=== PATIENT | male | born 1960 | race Caucasian/White ===

== ENCOUNTER → 2017-06-01 | Outpatient (CLI) | payer OTHER ==
--- NOTE | 2017-06-01 11:44 | XR ---
EXAMINATION TYPE: XR hand complete LT DATE OF EXAM: 06/01/2017 COMPARISON: NONE HISTORY: Pain TECHNIQUE: Three views are submitted. FINDINGS: The osseous structures are intact. Mild arthropathy of the MCP joint first digit. There is no acute f racture or dislocation. IMPRESSION: 1. No definite acute fracture or dislocation if symptoms persist, follow-up study in 7 to 10 days wo uld be suggested. If there is concern for scaphoid injury than a wrist series should be obtained.
--- NOTE | 2017-06-01 12:15 | XR ---
Left knee HISTORY: Trauma and pain 3 views of the left knee No comparisons There is chondrocalcinosis. Marginal spurring and joint space loss present in the medial compartment, patellofemoral joint. Suprapatellar joint effusion is present. There is soft tissue swelling. IMPRESSION: No fracture or dislocation. 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
== END | disposition home or self-care (01) ==
LOC: RADXRMAIN 10:44
PROVIDERS: ATTEND Emergency Medicine
DX: M12.862 Other specific arthropathies, not elsewhere classified, left knee (principal); S80.02XA Contusion of left knee, initial encounter; S63.602A Unspecified sprain of left thumb, initial encounter

== ENCOUNTER → 2017-06-13 | Outpatient (CLI) | payer OTHER ==
--- NOTE | 2017-06-13 15:19 | MR ---
EXAMINATION TYPE: MR knee LT wo con DATE OF EXAM: 06/13/2017 COMPARISON: NONE HISTORY: 56-year-old male with pain after fall, contusion of lt knee TECHNIQUE: Multiplanar, multisequence imaging of the left knee is performed without IV contrast. FINDINGS: Diffuse thickening and increased signal along the intact ACL fibers. There is also mild thickening an d some intrinsic signal within the PCL. The ligament measures up to 8.2 mm thick. The MCL and LCL complex are intact. Joint fluid extending along the popliteus tendon sheath. There is some mild intermediate tendinotic signal of the popliteus tendon. There is a posterior root tear of the medial meniscus with oblique tear extending throughout the post erior horn and body. The body is mildly extruded. Moderate diffuse thinning of weightbearing articula r cartilage. No focal high-grade cartilage defect seen. There is degenerative signal throughout the lateral meniscus. Tiny intermargin radial tear of the bod y. Signal appears to contact the tibial surface at the junction of the posterior horn and body on one image, coronal PD FS image 21. Mild superficial cartilage irregularity along the mid weightbearing a spect of the tibial articular surface. Mild to moderate diffuse thinning of patellofemoral compartment articular cartilage with marginal spu rring. Focal moderate to severe cartilage loss along the lateral trochlear facet with underlying subc hondral cystic change, sagittal PD FS image 13 and 14. Focal moderate thickness cartilage fissure flor ng the lateral patellar facet, axial image 16. Extensor mechanism is intact. Moderate knee joint effusion and nonspecific anterior subcutaneous soft tissue swelling. No significant Manznao cyst. Mild diffuse muscular atrophy. Normal popliteal artery anatomy. Patchy red marrow hyperplasia is pre sent. IMPRESSION: 1. Mucoid degeneration of the ACL. 2. Additional mucoid degeneration versus partial tear of the PCL. 3. Popliteus tendinosis. 4. Oblique tear throughout the posterior horn and body of the medial meniscus as well as a posterior root tear. The body is mildly extruded. Mild to moderate overall medial compartmental osteoarthrosis. 5. Degenerative signal throughout the lateral meniscus with tiny inner margin radial tear. Also, poss ible oblique tear at the junction of the posterior horn and body seen on one image. 6. Moderate patellofemoral compartmental osteoarthrosis. 7. Moderate knee joint effusion and anterior soft tissue swelling.
== END | disposition home or self-care (01) ==
LOC: RADMRIMAIN 13:17
PROVIDERS: ATTEND Emergency Medicine
DX: S83.242A Other tear of medial meniscus, current injury, left knee, initial encounter (principal); S83.282A Other tear of lateral meniscus, current injury, left knee, initial encounter; S63.602D Unspecified sprain of left thumb, subsequent encounter; M17.12 Unilateral primary osteoarthritis, left knee; M76.822 Posterior tibial tendinitis, left leg; M79.89 Other specified soft tissue disorders; M25.862 Other specified joint disorders, left knee

== ENCOUNTER → 2017-06-26 | Outpatient (CLI) | payer OTHER | END | disposition home or self-care (01) | LOC: LABWHC1 12:08 | PROVIDERS: ATTEND Orthopaedic Surgery Hand Surgery | DX: S53.32XA Traumatic rupture of left ulnar collateral ligament, initial encounter (principal) | CPT/HCPCS: 36415; 93005 ==

== ENCOUNTER 2017-11-30 08:36 | Day surgery (SDC) | payer OTHER ==
[2017-11-28 16:11] VITALS: BMI 39.4
[~2017-11-30 08:36] MED LIST: LACTATED RINGERS 1,000 ML IV SCH
[2017-11-30 10:17] VITALS: TEMP 96.8
[2017-11-30] MEDS ORDERED: LIDOCAINE 1% 20 ML VIAL (10MG/ML) FOR IV START INTRADERMA ONE (10:25)
[2017-11-30] MEDS ORDERED: PROPOFOL 10 MG/ML 20 ML VIAL IV ONE (10:58)
--- NOTE | 2017-11-30 11:16 | P.PCN ---
Date of Procedure: 11/30/17 Procedure(s) Performed: BRIEF HISTORY: Patient is a 57-year-old pleasant male, scheduled for an elective colonoscopy as a part of evaluation of prior history of colon polyps. His last colonoscopy was 7 years ago. PROCEDURE PERFORMED: Colonoscopy. PREOPERATIVE DIAGNOSIS: History Of colon polyps. IV sedation per Anesthesia. PROCEDURE: After informed consent was obtained, the patient, was brought into the endoscopy unit. IV sedation was administered by Anesthesia under continuous monitoring. Digital rectal examination was normal. Initially the Olympus CF- 160 flexible video colonoscope was then inserted in the rectum, gradually advanced into the cecum without any difficulty. Careful examination was performed as the scope was gradually being withdrawn. Ileocecal valve and the appendiceal orifice were visualized and appeared normal. Prep was excellent. Mucosa of the cecum, ascending colon, transverse colon, descending colon, sigmoid colon, and rectum appeared normal. Retroflexion was performed in the rectum and no lesions were seen. Scattered sigmoid diverticulosis seen. The patient tolerated the procedure well. IMPRESSION: Normal-appearing colon from rectum to cecum with no evidence of colorectal neoplasia. Scattered sigmoid diverticulosis. RECOMMENDATIONS: Findings of this examination were discussed with the patient as well as his family. He was advised to have a repeat screening colonoscopy in 5 years because of the prior history of colon polyps.
[2017-11-30 11:28] VITALS: RESP 18
[2017-11-30 11:50] VITALS: BP 136/85; PULSE 77
== END 2017-11-30 12:03 | disposition home or self-care (01) ==
LOC: ORWHC2ENDO 08:36
PROVIDERS: ATTEND Internal Medicine Gastroenterology
DX: Z12.11 Encounter for screening for malignant neoplasm of colon (principal); K57.30 Diverticulosis of large intestine without perforation or abscess without bleeding; Z87.19 Personal history of other diseases of the digestive system; G47.33 Obstructive sleep apnea (adult) (pediatric); E66.01 Morbid (severe) obesity due to excess calories; R42 Dizziness and giddiness; Z79.899 Other long term (current) drug therapy; Z88.0 Allergy status to penicillin; Z87.891 Personal history of nicotine dependence; Z68.39 Body mass index [BMI] 39.0-39.9, adult
CPT/HCPCS: J2704; G0121

== ENCOUNTER → 2021-06-09 | Outpatient (CLI) | payer OTHER | END | disposition home or self-care (01) | LOC: LABPAT 10:37 | PROVIDERS: ATTEND Orthopaedic Surgery | DX: Z01.812 Encounter for preprocedural laboratory examination (principal) | CPT/HCPCS: 87070 ==

== ENCOUNTER 2021-06-21 08:06 | Observation (INO) | payer OTHER ==
[2021-06-09 12:17] LABS: HCT 46.5 % (39.0-53.0); HGB 14.7 gm/dL (13.0-17.5); MCH 30.7 pg (25.0-35.0); MCHC 31.5 g/dL (31.0-37.0); MCV 97.5 fL (80.0-100.0); Mean Platelet Volume 7.8; Platelet Count 183 k/uL (150-450); RBC 4.77 m/uL (4.30-5.90); RDW 12.6 % (11.5-15.5); WBC 10.5 k/uL (3.8-10.6)
[2021-06-09 12:29] LABS: ALT 25 U/L (4-49); AST 26 U/L (17-59); African American GFR (CKD) >90 (>60 ml/min/1.73 sqM); Albumin 4.1 g/dL (3.5-5.0); Alkaline Phosphatase 82 U/L (38-126); Anion Gap 9 mmol/L; Blood Urea Nitrogen 16 mg/dL (9-20); Calcium 9.8 mg/dL (8.4-10.2); Carbon Dioxide 28 mmol/L (22-30); Chloride 101 mmol/L (98-107); Glucose 91 mg/dL (74-99); Non-African American GFR(CKD) >90 (>60 ml/min/1.73 sqM); Sodium 138 mmol/L (137-145); Total Bilirubin 0.6 mg/dL (0.2-1.3); Total Protein 7.7 g/dL (6.3-8.2)
[2021-06-09 12:38] LABS: Partial Thromboplastin Time 24.1 sec (22.0-30.0); Prothrombin Time 10.9 sec (9.0-12.0)
[2021-06-09 15:18] LABS: Appearance,Urine Clear (Clear); Bilirubin Confirmation, Urine Negative (Negative); Bilirubin,Urine Negative (Negative); Blood,Urine Negative (Negative); Color,Urine Light Yellow; Glucose,Urine (UA) Negative (Negative); Ketones,Urine Negative (Negative); Leukocyte Esterase,Urine Negative (Negative); Nitrite,Urine Negative (Negative); Protein Confirmation,Urine Negative (Negative); Specific Gravity,Urine 1.007 (1.001-1.035); Urobilinogen,Urine <2.0 mg/dL (<2.0)
[2021-06-17 16:20] VITALS: BMI 39.6
[~2021-06-21 08:06] MED LIST changes: +ACETAMINOPHEN TAB 500 MG TAB PO PRN; +CLINDAMYCIN 900 MG in DEXTROSE 5% IN WATER 50 ML IVPB PRN; +DEXAMETHASONE SOD PHOSPHATE 4 MG/ML 1 ML VIAL IV ONE; +GABAPENTIN 300 MG CAP PO PRN; +LIDOCAINE 1% (10MG/ML) FOR IV START INTRADERMA PRN; +MELOXICAM 7.5 MG TAB PO PRN; +ONDANSETRON 4 MG/2 ML VIAL IVP ONE; +SCOPOLAMINE 1.5MG/72HR PATCH TRANSDERM ONE; +TRANEXAMIC ACID 1,000 MG in SODIUM CHLORIDE 0.9% 100 ML IVPB PRN
[2021-06-21] MEDS ORDERED: NALOXONE 0.4 MG/ML 1 ML VIAL IV PRN (08:56)
[2021-06-21] MEDS ORDERED: hydrOXYzine pamoate 25 MG CAP PO PRN (08:56)
[2021-06-21] MEDS ORDERED: ONDANSETRON 4 MG/2 ML VIAL IVP PRN (08:56)
[2021-06-21] MEDS ORDERED: HYDROmorphone 0.2 MG/1 ML SYRINGE IVP PRN (08:56)
[2021-06-21] MEDS ORDERED: HYDROmorphone 1 MG/ML 1 ML SYRINGE IVP PRN (08:56)
[2021-06-21] MEDS ORDERED: MAGNESIUM HYDROXIDE 2,400 MG/10 ML CUP PO PRN (08:56)
[2021-06-21] MEDS ORDERED: FAMOTIDINE 20 MG/2 ML VIAL IVP ONE (08:59)
[2021-06-21] MEDS ORDERED: GLYCOPYRROLATE 0.2 MG/ML 2 ML VIAL ONE (09:00)
[2021-06-21] MEDS ORDERED: TRANEXAMIC ACID 1,000 MG/10 ML VIAL ONE (09:00)
[2021-06-21] MEDS ORDERED: SUCCINYLCHOLINE CHLORIDE 100 MG/5 ML SYR IV ONE (09:00)
[2021-06-21] MEDS ORDERED: MIDAZOLAM 2 MG/2 ML VIAL ONE (09:00)
[2021-06-21] MEDS ORDERED: HYDROmorphone (PF) 1 MG/ML ONE (09:00)
[2021-06-21] MEDS ORDERED: NEOSTIGMINE 1 MG/ML 10 ML VIAL ONE (09:00)
[2021-06-21] MEDS ORDERED: PROPOFOL 10 MG/ML 20 ML VIAL IV ONE (09:00)
[2021-06-21] MEDS ORDERED: ROCURONIUM 10 MG/ML (5 ML VIAL) IV ONE (09:00)
[2021-06-21] MEDS ORDERED: SODIUM CHLORIDE 0.9% IRRIG 1,000 ML BTL IRRIGATION ONE (09:00)
[2021-06-21] MEDS ORDERED: SODIUM CHLORIDE 0.9% 100 ML BAG ONE (09:00)
[2021-06-21] MEDS ORDERED: HEPARIN SODIUM,PORCINE 10,000 UNIT/ML 1 ML VIAL ONE (09:00)
[2021-06-21] MEDS ORDERED: LIDOCAINE 1% INJ 10MG/ML (20 ML MDV) ONE (09:00)
[2021-06-21] MEDS ORDERED: fentaNYL (PF) 50 MCG/ML 2 ML AMP ONE (09:00)
[2021-06-21] MEDS: ROPIVACAINE 246.25 MG, EPINEPHrine 0.5 MG, KETOROLAC 30 MG, cloNIDine HCL/PF 80 MCG, WA... MISCELLANE PRN ×10 (09:33→10:18)
[2021-06-21] MEDS ORDERED: LACTATED RINGERS 1,000 ML IV ONE (10:22)
--- NOTE | 2021-06-21 10:22 | P.OP ---
Date of Procedure: 06/21/21 Preoperative Diagnosis: Severe osteoarthritis right hip Postoperative Diagnosis: Severe osteoarthritis right hip Procedure(s) Performed: Right total hip arthroplasty with a direct anterior approach Implants: [employer] Polarstem collared size 5 [employer] R3, 3 hole hemispherical acetabular shell, 54 mm [employer] Reflection 6.5 mm cancellus screw, 20 mm, 25 mm [employer] R3, XLPE 20 acetabular liner [employer]hew Oxinium femoral head 36 m, -3 All components were press-fit. The articulation is Oxinium on polyethylene. Anesthesia: GETA Surgeon: Emiliano Saba Rag Sorter #1: Christie Acosta Estimated Blood Loss (ml): 350 (130 mL returned with Cell Saver) Pathology: other (Femoral head) Condition: stable Disposition: PACU Indications for Procedure: After failure of conservative treatment we discussed the surgical and nonsurgical treatment options at length. Patient wishes to proceed with a total hip arthroplasty with a direct anterior approach. Complications specific to this procedure were discussed at length, including but not limited to infection, leg length discrepancy, dislocation, nerve injury, and fracture. Covid-19 was also discussed at length with the patient, and they are aware of the current policies and procedures. The patient was given the option of delaying surgery, but they elect to proceed knowing these risks. Patient is aware of all these complications and informed consent was obtained Operative Findings: The operative findings are consistent with severe osteoarthritis of the right hip Description of Procedure: Patient was seen and evaluated in the preoperative area and the consent was reviewed. The operative site was marked with a skin marker. The patient was then brought to the operating room and given preoperative antibiotics intravenously. 1 g of Tranexamic acid was also given intravenously. A general anesthetic was administered by the anesthesia department. The patient was then placed on the [place] table with the bony prominences well-padded. The hip area was then prepped with a ChloraPrep solution and draped in the usual sterile fashion. A universal timeout was then performed, which confirmed the patient's name, surgical site, ALLERGIES, and procedure being performed on the consent. Next the incision site was located at 1 cm distal to the anterior superior iliac spine along the flexion crease of the hip. The skin and subcutaneous tissues were sharply incised. Incision was carefully dissected down to the fascia overlying the tensor fascia kevin muscle. This fascia was then incised in line with the incision. Care was taken to stay laterally in order to avoid injuring the lateral femoral cutaneous nerve. Next, using blunt finger dissection, the tensor fascia kevin muscle was dissected off its investing fascia. The muscle was then carefully retracted laterally with a cobra retractor over the lateral neck of the femur. Next, the circumflex vessels were identified and cauterized using the AquaMantis device. The anterior hip capsule was then exposed. The capsule was then opened and an inverted T fashion. Cobra retractors were then placed intracapsularly. The retractors were maintained intracapsular throughout the procedure. The proximal femur was then visualized. A small amount of traction was placed on the leg. The femoral neck was then osteotomized appropriate level above the lesser trochanter. A small wedge of bone was then removed from the remaining femoral head. Next, using a corkscrew the femoral head was removed from the acetabulum. On gross visual inspection, the femoral head had complete loss of articular cartilage and multiple periarticular osteophytes. The femoral head was then measured. Attention was then turned to the acetabulum. The acetabulum was exposed and any remaining labrum was excised. Sequential reaming of the acetabulum was performed using fluoroscopic guidance until there was a good bed of bleeding cancellus bone. When the appropriate size was reached, a trial was then placed. The position and fit of the trial was checked with fluoroscopy. The trial was then removed. Then, using fluoroscopic jaydon dance, the final implant was impacted at 20 of anteversion and 40 of abduction, and fully seated in the acetabulum. 2 screws were then placed in the acetabulum. Again fluoroscopy was used to check position of the screws. Next, the liner was then impacted, with a 20 elevated liner located in the anterior superior quadrant. Component locking was confirmed. Attention was then directed to the femur. With the aid of the [place] table, the femur was externally rotated to approximately 130, extended, and adducted under the opposite leg. A side hook was then placed under the proximal femur, and the side hook elevator was used to elevate the proximal femur while releasing the capsule. Retractors were then placed. A capsular release was performed, as well as a release of the conjoined tendon, which afforded excellent visualization of the proximal femur. Next, a box osteotome was used to lateralize the proximal femur. A hand drawer in was then used to locate the femoral canal. Sequential broaching was then performed with appropriate size which afforded excellent fixation in the proximal femur. A trial was then placed with appropriate head and neck, and the hip was gently reduced with the aid of the [place] table. Fluoroscopy was then used to check position of the components, as well as to ensure equal leg lengths. The hip was then gently dislocated and the trials were then removed. Final implants were then impacted and the hip was again reduced. Final fluoroscopic x-rays confirmed that the components were in anatomic position, as well as equal leg lengths. The hip was also taken through range of motion, and found to be stable. The hip was then copiously irrigated with antibiotic solution with pulsatile lavage. The hip was then irrigated with Irrisept solution. The soft tissues were then injected with a ropivacaine solution, which consisted of 246.25 mg of ropivacaine, 0.5 mg of epinephrine, 30 mg of Toradol, 80 g of clonidine, and 48.45 mL of sterile water, for a total of 100 mL of fluid injected. A second dose of 1 g of Tranexamic acid was also given intravenously. Any blood collected by Cell Saver was then returned to the patient at this time. The fascia was then closed with 2-0 strata fix suture. The subcutaneous tissue was closed with 3-0 Vicryl. The subcuticular tissue was closed with 3-0 strata fix suture. The skin was then closed with Exofin skin glue. After the glue and dried, and Optifoam silver impregnated dressing was applied. The patient was then transferred to the recovery room in stable condition. The head start assistant teacher SHARONDA Mcintosh was required due to the complexity of surgery, and the need for skilled manager surgical for positioning, draping, exposure, retraction, and closure of the wound.
--- NOTE | 2021-06-21 10:59 | FL ---
Fluoroscopy HISTORY: Anterior hip replacement 38 seconds fluoroscopy time supplied to the referring clinician. 2 intraoperative C-arm images docum ent the procedure. See dictated report from orthopedic surgery.
[2021-06-21] MEDS ORDERED: KETOROLAC 15 MG/ML 1 ML VIAL ONE (11:17)
[2021-06-21] MEDS: HYDROmorphone 0.5 MG/0.5 ML SYRINGE IVP PRN ×4 (11:18→16:18)
--- NOTE | 2021-06-21 11:21 | XR ---
EXAMINATION TYPE: XR Hip Limited RT DATE OF EXAM: 06/21/2021 CLINICAL HISTORY: Right hip pain and osteoarthritis. TECHNIQUE: Single AP portable view of right hip is obtained immediately postoperatively. COMPARISON: None. FINDINGS: Metallic hardware from right hip arthroplasty is seen and appears satisfactory in alignment and position. There is evidence of recent surgery with subcutaneous gas noted laterally. IMPRESSION: Metallic hardware from right hip arthroplasty is satisfactory in position.
[2021-06-21] MEDS ORDERED: KETOROLAC 15 MG/ML 1 ML VIAL IVP ONE (11:23)
[2021-06-21] MEDS ORDERED: ONDANSETRON 4 MG/2 ML VIAL IVP ONE (11:46)
[2021-06-21] MEDS: SODIUM CHLORIDE 0.9% 1,000 ML IV SCH (16:04)
[2021-06-21] MEDS: CLINDAMYCIN 900 MG in DEXTROSE 5% IN WATER 50 ML IVPB SCH ×2 (16:18)
[2021-06-21] MEDS: ASPIRIN 325 MG TAB PO SCH (20:28)
[2021-06-21] MEDS: SENNOSIDES-DOCUSATE SODIUM 1 EACH TAB PO SCH (20:28)
[2021-06-22] MEDS: SODIUM CHLORIDE 0.9% 1,000 ML IV SCH ×2 (00:12→14:09)
[2021-06-22] MEDS: CLINDAMYCIN 900 MG in DEXTROSE 5% IN WATER 50 ML IVPB SCH ×2 (00:12)
--- NOTE | 2021-06-22 00:22 | P.CONS ---
History of Present Illness - Reason for Consult Consult date: 06/21/21 Medical management - Chief Complaint elective Right total hip arthroplasty - History of Present Illness Patient is a 60-year-old male with a known history of obstructive sleep apnea, hypertension, history of colon polyps, history of COVID-19 infection in September 2020, previous history of smoking, obesity and BPH was admitted to the hospital for right total hip arthroplasty. Patient underwent right total hip arthroplasty with a direct anterior approach. Currently patient is still complaining of right hip pain and was given IV pain medications. No complaints of chest pain or shortness of breath. No headache or dizziness or lightheadedness. No nausea vomiting or abdominal pain or diarrhea. Patient has been afebrile. Lab data showed WBC 10.5 hemoglobin 14.7 and platelets 183 Sodium 138 potassium 4.0 chloride 101 bicarb is 28 BUN 16 and creatinine 0.61 liver enzymes are not elevated UA negative for infection COVID-19 PCR not detected Review of Systems Constitutional: Patient denies any fever or chills . No generalized weakness or weight loss. Abdomen: Patient denied nausea vomiting and diarrhea and abdominal pain. Cardiovascular: Patient denies any chest pain or short of breath no palpitations. Respiratory: patient denied any cough or sputum production. No shortness of breath Neurologic: Patient denied any numbness or tingling headache. Musculoskeletal: Patient denies any complaints of joint swelling or deformity.Right hip pain. Skin: Negative Psychiatric: Negative Endocrine: No heat or cold intolerance. No recent weight gain. Genitourinary: No dysuria or hematuria. All other 14 point ROS negative except the above Past Medical History Past Medical History: Osteoarthritis (OA), Skin Disorder, Sleep Apnea/CPAP/BIPAP Additional Past Medical History / Comment(s): high heart rate,uses cpap,hx colon polyps,eczema legs,Covid Sep 2020 History of Any Multi-Drug Resistant Organisms: MRSA Year Discovered:: 12/07/17 MDRO Source:: KNEE Additional Past Surgical History / Comment(s): colonoscopy,lt thumb ligament repair Past Anesthesia/Blood Transfusion Reactions: No Reported Reaction, Motion Sickness Additional Past Anesthesia/Blood Transfusion Reaction / Comm: vertigo,no hx blood transfusion Past Psychological History: No Psychological Hx Reported Smoking Status: Former smoker Past Alcohol Use History: None Reported Additional Past Alcohol Use History / Comment(s): quit smoking 2004,smoked approx 25 yrs 1 1/2ppd Past Drug Use History: None Reported - Past Family History Mother Family Medical History: Cancer Additional Family Medical History / Comment(s): lymphnode CA Medications and Allergies Home Medications Medication Instructions Recorded Confirmed Type Meclizine HCl 25 mg PO TID PRN 11/28/17 06/17/21 History Meloxicam 15 mg PO DAILY 11/28/17 06/17/21 History Propranolol HCl [Inderal LA] 80 mg PO 1700 11/28/17 06/17/21 History methocarbamoL [Robaxin] 750 mg PO Q6H PRN 11/28/17 06/17/21 History Ascorbic Acid [Vitamin C] 500 mg PO DAILY 06/17/21 06/17/21 History Cholecalciferol [Vitamin D3 (25 125 mcg PO DAILY 06/17/21 06/17/21 History Mcg = 1000 Iu)] Glucosamine/Chondr [place] A Sod [Osteo 1 each PO DAILY 06/17/21 06/17/21 History Bi-Flex Caplet] Pravastatin Sodium [Pravachol] 20 mg PO HS 06/17/21 06/17/21 History Tamsulosin HCl [Flomax] 0.4 mg PO QAM 06/17/21 06/17/21 History Zinc 50 mg PO DAILY 06/17/21 06/17/21 History hydroCHLOROthiazide 25 mg PO DAILY 06/17/21 06/17/21 History Aspirin 325 mg PO BID #60 tab 06/21/21 Rx HYDROcodone/APAP 7.5-325MG [[place] 1 - 2 tab PO Q6H PRN #32 tab 06/21/21 Rx 7.5-325] Ondansetron Odt [Zofran Odt] 1 tab PO Q8HR PRN #10 tab 06/21/21 Rx Sennosides [Senokot] 2 tab PO DAILY PRN #60 tablet 06/21/21 Rx Allergies Allergy/AdvReac Type Severity Reaction Status Date / Time Penicillins Allergy Dyspnea Verified 06/21/21 08:46 sulfamethoxazole Allergy Rash/Hives Verified 06/21/21 08:46 [From Bactrim] trimethoprim [From Bactrim] Allergy Rash/Hives Verified 06/21/21 08:46 Physical Exam Vitals: Vital Signs Temp Pulse Pulse Resp BP Pulse Ox 06/21/21 15:00 96 16 117/58 100 06/21/21 14:30 100 16 134/62 95 06/21/21 14:00 105 H 18 129/61 96 06/21/21 13:30 95 17 127/58 98 06/21/21 13:00 92 16 124/55 98 06/21/21 12:36 99 16 126/59 98 06/21/21 12:27 97 16 119/57 100 06/21/21 11:45 89 16 119/54 100 06/21/21 11:30 79 16 128/62 100 06/21/21 11:15 83 17 131/61 100 06/21/21 11:00 84 16 123/58 100 06/21/21 10:49 87 14 119/67 97 06/21/21 08:44 97.9 F 94 16 135/76 98 Intake and Output 06/21/21 06/21/21 06/21/21 06:59 14:59 22:59 Intake Total 1106 700 Output Total 350 Balance 756 700 Intake: IV 1106 700 Output: Estimated Blood Loss 350 Other: # Voids 0 Weight 128.82 kg PHYSICAL EXAMINATION: Patient is lying in the bed comfortably, no acute distress, awake alert and or iented.. HEENT: Normocephalic. Neck is supple. Pupils reactive. Nostrils clear. Oral cavity is moist. Neck reveals no JVD, carotid bruits, or thyromegaly. CHEST EXAMINATION: Trachea is central. Symmetrical expansion. Lung lyons clear to auscultation and percussion. CARDIAC: Normal S1, S2 with no gallops. No murmurs ABDOMEN: Soft. Bowel sounds normal. No organomegaly. No abdominal bruits. Extremities: reveal no edema. No clubbing or cyanosis Neurologically awake, alert, oriented x3 with well-coordinated movements. No focal deficits noted Skin: No rash or skin lesions. Psychiatric: Cooperative. Nonsuicidal Musculoskeletal: No joint swelling or deformity. Normal range of motion. Results CBC & Chem 7: 06/09/21 10:59 06/09/21 10:59 Assessment and Plan Assessment: Status post right total hip arthroplasty postoperative day 0 Hypertension blood pressures controlled History of tachycardia COVID-19 infection September 2020 Osteoarthritis Obstructive sleep apnea on CPAP at home Osteoarthritis History of colon polyps Previous history of smoking DVT prophylaxis Plan: Patient will be started back on home dose of Inderal and hydrochlorothiazide is on hold. Continue with pain management, DVT prophylaxis as per primary team. Encourage ambulation and incentive spirometry. Monitor respiratory status closely. We will continue to follow with you and further recommendations based on the clinical course. Thank you for your consult.
--- NOTE | 2021-06-22 07:44 | P.DS ---
Providers Expected date of discharge: 06/22/21 Attending physician: Emiliano Saba Consults: 06/21/21 08:56 Consult Physician Routine Consulting Provider: Antonia Gaffney Consult Reason/Comments: medical management Do you want consulting provider notified?: Yes Primary care physician: Madina Crane - Discharge Diagnosis(es) (1) Primary localized osteoarthritis of right hip Current Visit: Yes Status: Acute (2) Status post total hip replacement, right Current Visit: Yes Status: Acute Hospital Course: This is a 60-year-old nail with known history of degenerative arthritis of the right hip. The patient presents for evaluation. After discussion and consideration patient elects to proceed with total hip arthroplasty with direct anterior approach. The patient is seen preoperatively by his primary care physician and cleared for surgery. Patient is admitted to [facility] on 06/21/2021 for total hip arthroplasty with direct anterior approach. The procedures performed without complication or sequelae. The patient is doing well postoperatively. Labs and vital signs are stable on day of discharge. he is complaining of gas and heartburn today. He has not yet had a bowel movement. On day of discharge patient's hip incision is healing well. There is minimal erythema. There is no drainage noted at this time. There is minimal soft tissue swelling to the hip and thigh. Patient has full foot and ankle motion without difficulty or pain. Neurovascular status to the right lower extremity is intact. abdomen is slightly distended with minimal tenderness. Patient is discharged to home in good condition pending medical clearance, physical therapy evaluation and ability to have bowel movement. Please see med rec for accurate list of home medications. Patient Condition at Discharge: Good Plan - Discharge Summary Discharge Rx Participant: No New Discharge Prescriptions: New HYDROcodone/APAP 7.5-325MG [[place] 7.5-325] 1 - 2 tab PO Q6H PRN #32 tab PRN Reason: Pain Ondansetron Odt [Zofran Odt] 1 tab PO Q8HR PRN #10 tab PRN Reason: Nausea Aspirin 325 mg PO BID #60 tab Sennosides [Senokot] 2 tab PO DAILY PRN #60 tablet PRN Reason: Constipation No Action methocarbamoL [Robaxin] 750 mg PO Q6H PRN PRN Reason: Pain Propranolol HCl [Inderal LA] 80 mg PO 1700 Meloxicam 15 mg PO DAILY Meclizine HCl 25 mg PO TID PRN PRN Reason: Vertigo Glucosamine/Chondr [place] A Sod [Osteo Bi-Flex Caplet] 1 each PO DAILY Pravastatin Sodium [Pravachol] 20 mg PO HS Tamsulosin HCl [Flomax] 0.4 mg PO QAM Zinc 50 mg PO DAILY Cholecalciferol [Vitamin D3 (25 Mcg = 1000 Iu)] 125 mcg PO DAILY Ascorbic Acid [Vitamin C] 500 mg PO DAILY hydroCHLOROthiazide 25 mg PO DAILY Discharge Medication List Meclizine HCl 25 mg PO TID PRN 11/28/17 [History] Meloxicam 15 mg PO DAILY 11/28/17 [History] Propranolol HCl [Inderal LA] 80 mg PO 1700 11/28/17 [History] methocarbamoL [Robaxin] 750 mg PO Q6H PRN 11/28/17 [History] Ascorbic Acid [Vitamin C] 500 mg PO DAILY 06/17/21 [History] Cholecalciferol [Vitamin D3 (25 Mcg = 1000 Iu)] 125 mcg PO DAILY 06/17/21 [History] Glucosamine/Chondr [place] A Sod [Osteo Bi-Flex Caplet] 1 each PO DAILY 06/17/21 [History] Pravastatin Sodium [Pravachol] 20 mg PO HS 06/17/21 [History] Tamsulosin HCl [Flomax] 0.4 mg PO QAM 06/17/21 [History] Zinc 50 mg PO DAILY 06/17/21 [History] hydroCHLOROthiazide 25 mg PO DAILY 06/17/21 [History] Aspirin 325 mg PO BID #60 tab 06/21/21 [Rx] HYDROcodone/APAP 7.5-325MG [[place] 7.5-325] 1 - 2 tab PO Q6H PRN #32 tab 06/21/21 [Rx] Ondansetron Odt [Zofran Odt] 1 tab PO Q8HR PRN #10 tab 06/21/21 [Rx] Sennosides [Senokot] 2 tab PO DAILY PRN #60 tablet 06/21/21 [Rx] Follow up Appointment(s)/Referral(s): Emiliano Saba DO [Doctor of Osteopathic Medicine] - 2 Weeks Activity/Diet/Wound Care/Special Instructions: Weightbearing as tolerated with walker. Leave dressing intact. Dressing may be removed by home care nurse or by patient in 7 days. Then change dressing twice daily until follow up. May shower with initial dressing intact and after removal. If dressing become saturated, please remove. Please take aspirin 325mg twice daily for 30 days to prevent blood clots. Recommend use of compression stockings daily until follow up to help prevent swelling and blood clots. May remove at night before sleeping. Please follow-up with [facility] in 2 weeks and call with any questions or concerns, . Discharge Disposition: HOME WITH HOME HEALTH SERVICES
[2021-06-22] MEDS: ASPIRIN 325 MG TAB PO SCH ×2 (08:29→19:53)
[2021-06-22] MEDS: FAMOTIDINE 20 MG TAB PO SCH (08:30)
[2021-06-22] MEDS: CALCIUM CARBONATE 500 MG CHEWABLE PO PRN ×2 (08:30→17:40)
[2021-06-22] MEDS: bisacodyL 5 MG TABLET.DR PO PRN (08:30)
[2021-06-22] MEDS ORDERED: TAMSULOSIN 0.4 MG CAP.ER.24H PO SCH (09:00)
[2021-06-22 09:12] LABS: HCT 40.4 % (39.6-50.0); MCHC 32.2 g/dL (32.0-37.0); MCV 96.2 fL (80.0-97.0); Mean Platelet Volume 10.1 fL (9.5-12.2); Platelet Count 232 X 10*3/uL (140-440); RDW 12.4 % (11.5-14.5)
[2021-06-22 10:49] LABS: Basophils # (A) 0.03 X 10*3/uL (0.00-0.10); Basophils % (A) 0.2 %; Eosinophils # (A) 0.08 X 10*3/uL (0.04-0.35); Eosinophils % (A) 0.6 %; Lymphocytes % (A) 9.4 %; Monocytes # (A) 1.54 X 10*3/uL (0.20-1.00); Monocytes % (A) 11.2 %; Neutrophils # (A) 10.75 X 10*3/uL (1.80-7.70); Neutrophils % (A) 77.9 %
[2021-06-22] MEDS: HYDROmorphone 0.5 MG/0.5 ML SYRINGE IVP PRN ×2 (11:05→19:51)
[2021-06-22 14:55] LABS: Appearance,Urine Clear (Clear); Bilirubin,Urine Negative (Negative); Blood,Urine Moderate (Negative); Color,Urine Light Yellow; Glucose,Urine (UA) Negative (Negative); Ketones,Urine Negative (Negative); Leukocyte Esterase,Urine Negative (Negative); Nitrite,Urine Negative (Negative); PH, Urine 6.5 (5.0-8.0); Protein,Urine Negative (Negative); RBC,Urine 1 /hpf (0-5); Specific Gravity,Urine 1.004 (1.001-1.035); Urobilinogen,Urine <2.0 mg/dL (<2.0); WBC,Urine 1 /hpf (0-5)
[2021-06-22] MEDS ORDERED: PROPRANOLOL LA 80 MG CAP.SA.24H PO SCH (17:00)
--- NOTE | 2021-06-22 19:35 | P.GSCN ---
History of Present Illness Consult date: 06/22/21 Reason for Consult: Urinary retention History of present illness: This is a 60-year-old male status post hip replacement on June 21. Urology is consulted for urinary retention. Since surgery he's has required CIC 2, his most recent PVR is 1200 mL's. He does have history of recurrent urinary retent He previously follows up with Dr. Marcial, and he was started on Flomax twice a day for his urinary retention. At baseline he does complain of weak stream, straining with urination, and hesitancy. Denies any history of kidney stones or recurrent UTIs Review of Systems - Constitutional Denies fever, Denies weight loss - Cardiovascular Denies chest pain, Denies shortness of breath - Respiratory Denies cough, Denies 7 - Gastrointestinal Reports as per HPI - Genitourinary Reports urinary hesitancy, Reports urinary retention, Denies dysuria, Denies flank pain, Denies hematuria - Integumentary Denies rash, Denies unusual bruising - Neurological Denies headaches, Denies syncope Past Medical History Past Medical History: Osteoarthritis (OA), Skin Disorder, Sleep Apnea/CPAP/BIPAP Additional Past Medical History / Comment(s): high heart rate,uses cpap,hx colon polyps,eczema legs,Covid Sep 2020 History of Any Multi-Drug Resistant Organisms: MRSA Year Discovered:: 12/07/17 MDRO Source:: KNEE Additional Past Surgical History / Comment(s): colonoscopy,lt thumb ligament repair Past Anesthesia/Blood Transfusion Reactions: No Reported Reaction, Motion Sickness Additional Past Anesthesia/Blood Transfusion Reaction / Comm: vertigo,no hx blood transfusion Past Psychological History: No Psychological Hx Reported Smoking Status: Former smoker Past Alcohol Use History: None Reported Additional Past Alcohol Use History / Comment(s): quit smoking 2004,smoked approx 25 yrs 1 1/2ppd Past Drug Use History: None Reported - Past Family History Mother Family Medical History: Cancer Additional Family Medical History / Comment(s): lymphnode CA Medications and Allergies Home Medications Medication Instructions Recorded Confirmed Type Meclizine HCl 25 mg PO TID PRN 11/28/17 06/17/21 History Meloxicam 15 mg PO DAILY 11/28/17 06/17/21 History Propranolol HCl [Inderal LA] 80 mg PO 1700 11/28/17 06/17/21 History methocarbamoL [Robaxin] 750 mg PO Q6H PRN 11/28/17 06/17/21 History Ascorbic Acid [Vitamin C] 500 mg PO DAILY 06/17/21 06/17/21 History Cholecalciferol [Vitamin D3 (25 125 mcg PO DAILY 06/17/21 06/17/21 History Mcg = 1000 Iu)] Glucosamine/Chondr [place] A Sod [Osteo 1 each PO DAILY 06/17/21 06/17/21 History Bi-Flex Caplet] Pravastatin Sodium [Pravachol] 20 mg PO HS 06/17/21 06/17/21 History Tamsulosin HCl [Flomax] 0.4 mg PO QAM 06/17/21 06/17/21 History Zinc 50 mg PO DAILY 06/17/21 06/17/21 History hydroCHLOROthiazide 25 mg PO DAILY 06/17/21 06/17/21 History Aspirin 325 mg PO BID #60 tab 06/21/21 Rx HYDROcodone/APAP 7.5-325MG [[place] 1 - 2 tab PO Q6H PRN #32 tab 06/21/21 Rx 7.5-325] Ondansetron Odt [Zofran Odt] 1 tab PO Q8HR PRN #10 tab 06/21/21 Rx Sennosides [Senokot] 2 tab PO DAILY PRN #60 tablet 06/21/21 Rx Allergies Allergy/AdvReac Type Severity Reaction Status Date / Time Penicillins Allergy Dyspnea Verified 06/21/21 08:46 sulfamethoxazole Allergy Rash/Hives Verified 06/21/21 08:46 [From Bactrim] trimethoprim [From Bactrim] Allergy Rash/Hives Verified 06/21/21 08:46 Surgical - Exam Vital Signs Temp Pulse Resp BP Pulse Ox 97.9 F 94 16 135/76 98 06/21/21 08:44 06/21/21 08:44 06/21/21 08:44 06/21/21 08:44 06/21/21 08:44 - General well developed, well nourished, no distress, moderate pain - Eyes PERRL, normal ocular movement - ENT normal nares, normal mucosa, no hearing loss - Respiratory normal expansion, normal respiratory effort - Abdomen Abdomen: soft, non tender - Psychiatric oriented to time, oriented to person, oriented to place Results - Labs 06/22/21 05:20 06/09/21 10:59 Abnormal Lab Results - Last 24 Hours (Table) 06/22/21 06/22/21 Range/Units 05:20 14:40 WBC 13.80 H (4.50-10.00) X 10*3/uL RBC 4.20 L (4.40-5.60) X 10*6/uL Immature Gran # 0.10 H (0.00-0.04) X 10*3/uL Neutrophils # 10.75 H (1.80-7.70) X 10*3/uL Monocytes # 1.54 H (0.20-1.00) X 10*3/uL Urine Blood Moderate H (Negative) Assessment and Plan Assessment: 60-year-old male postoperative urinary retention. Does have history of obstructive urinary symptoms at baseline still symptomatic despite Flomax. -Recommend place a Gotti catheter, Gotti can stay in for 5-7 days, can follow-up as an outpatient for trial of void. Discussed with him given his significant urinary symptoms despite medical therapy, he will require surgical intervention for his BPH in the future -continue flomax BID
[2021-06-22] MEDS: SENNOSIDES-DOCUSATE SODIUM 1 EACH TAB PO SCH (19:53)
[2021-06-22] MEDS ORDERED: HYDROcodone/APAP 5-325MG 1 EACH TAB PO PRN ×2 (20:31)
[2021-06-22] MEDS ORDERED: PRAVASTATIN SODIUM 20 MG TAB PO SCH (21:00)
[2021-06-23] MEDS: SODIUM CHLORIDE 0.9% 1,000 ML IV SCH (05:15)
[2021-06-23 08:34] VITALS: BP 110/66; PULSE 80; RESP 18; TEMP 98.8
[2021-06-23] MEDS: ASPIRIN 325 MG TAB PO SCH (08:37)
[2021-06-23] MEDS: CALCIUM CARBONATE 500 MG CHEWABLE PO PRN (08:37)
[2021-06-23] MEDS: bisacodyL 5 MG TABLET.DR PO PRN (08:37)
[2021-06-23] MEDS: FAMOTIDINE 20 MG TAB PO SCH (08:38)
[2021-06-23] MEDS ORDERED: TAMSULOSIN 0.4 MG CAP.ER.24H PO SCH (09:00)
--- NOTE | 2021-06-23 10:29 | P.PN ---
Subjective Progress Note Date: 06/22/21 Patient is a 60-year-old male with a known history of obstructive sleep apnea, hypertension, history of colon polyps, history of COVID-19 infection in September 2020, previous history of smoking, obesity and BPH was admitted to the hospital for right total hip arthroplasty. Patient underwent right total hip arthroplasty with a direct anterior approach. Currently patient is still complaining of right hip pain and was given IV pain medications. No complaints of chest pain or shortness of breath. No headache or dizziness or lightheadedness. No nausea vomiting or abdominal pain or diarrhea. Patient has been afebrile. Lab data showed WBC 10.5 hemoglobin 14.7 and platelets 183 Sodium 138 potassium 4.0 chloride 101 bicarb is 28 BUN 16 and creatinine 0.61 liver enzymes are not elevated UA negative for infection COVID-19 PCR not detected 06/22/2021 Patient is currently sitting in a chair comfortably. No complains of chest pain or short of breath. Patient is using CPAP at night. Denied any complaints of worsening right hip pain. Patient was retaining urine this morning and had to do straight cath with 1200 mL urine drainage. Patient has not voided spontaneously since then. Otherwise no complaints of nausea vomiting or abdominal pain or diarrhea. No dysuria or hematuria. Patient has been afebrile. Current medications reviewed. Objective - Vital Signs Vital signs: Vital Signs Temp 99.1 F 06/22/21 07:54 Pulse 94 06/22/21 07:54 Resp 17 06/22/21 07:54 BP 112/67 06/22/21 07:54 Pulse Ox 95 06/22/21 07:54 Intake & Output 06/21/21 06/22/21 06/22/21 18:59 06:59 18:59 Intake Total 1806 790 470 Output Total 350 Balance 1456 790 470 Weight 128.82 kg Intake: IV 1806 Intake, IV Titration 790 470 Amount Clindamycin 900 mg In 50 Dextrose 5% in Water 50 ml @ 112 mls/hr IVPB ONCE PRN Rx#:[id number] Lactated Ringers 1,000 ml 40 @ 20 mls/hr IV .Q24H [facility]IE Rx#:[id number] Sodium Chloride 0.9% 1, 700 470 000 ml @ 70 mls/hr IV . [id number] [facility] Rx#:[id number] Output: Estimated Blood Loss 350 Other: # Voids 0 3 - Exam PHYSICAL EXAMINATION: Patient is lying in the bed comfortably, no acute distress, awake alert and oriented.. HEENT: Normocephalic. Neck is supple. Pupils reactive. Nostrils clear. Oral cavity is moist. Neck reveals no JVD, carotid bruits, or thyromegaly. CHEST EXAMINATION: Trachea is central. Symmetrical expansion. Lung lyons clear to auscultation and percussion. CARDIAC: Normal S1, S2 with no gallops. No murmurs ABDOMEN: Soft. Bowel sounds normal. No organomegaly. No abdominal bruits. Extremities: reveal no edema. No clubbing or cyanosis Neurologically awake, alert, oriented x3 with well-coordinated movements. No focal deficits noted Skin: No rash or skin lesions. Psychiatric: Coperative. Nonsuicidal Musculoskeletal: No joint swelling or deformity. Normal range of motion. - Labs CBC & Chem 7: 06/22/21 05:20 06/09/21 10:59 Labs: Abnormal Lab Results - Last 24 Hours (Table) 06/22/21 Range/Units 05:20 WBC 13.80 H (4.50-10.00) X 10*3/uL RBC 4.20 L (4.40-5.60) X 10*6/uL Immature Gran # 0.10 H (0.00-0.04) X 10*3/uL Neutrophils # 10.75 H (1.80-7.70) X 10*3/uL Monocytes # 1.54 H (0.20-1.00) X 10*3/uL Assessment and Plan Assessment: Status post right total hip arthroplasty postoperative day 1 acute urinary retention. Requiring straight catheterization. Hypertension blood pressures controlled History of tachycardia COVID-19 infection September 2020 Osteoarthritis Obstructive sleep apnea on CPAP at home Osteoarthritis History of colon polyps Previous history of smoking DVT prophylaxis Plan: Patient was started back on home dose of Inderal and hydrochlorothiazide is on hold. Patient required straight cath patient is monitoring. Encourage ambulation and limit narcotic pain medication use. Anticipate discharge once patient voids spo ntaneously. Continue with pain management, DVT prophylaxis as per primary team. Encourage ambulation and incentive spirometry. Monitor respiratory status closely. We will continue to follow with you and further recommendations based on the clinical course.
--- NOTE | 2021-06-23 10:48 | P.PN ---
Subjective Progress Note Date: 06/23/21 had a Gotti catheter placed yesterday, urine was blood-tinged. Denies any abdominal pain, discussed with him a transrectal ultrasound from 2014 showed the prostate to be 150 mg. Objective - Vital Signs Vital signs: Vital Signs Temp 98.8 F 06/23/21 08:00 Pulse 80 06/23/21 08:00 Resp 18 06/23/21 08:00 BP 110/66 06/23/21 08:00 Pulse Ox 94 L 06/23/21 08:00 Intake & Output 06/22/21 06/23/21 06/23/21 18:59 06:59 18:59 Intake Total 470 Output Total 2300 3200 Balance -1830 -3200 Intake: Intake, IV Titration 470 Amount Sodium Chloride 0.9% 1, 470 000 ml @ 70 mls/hr IV . [id number] [facility] Rx#:[id number] Output: Urine 2300 3200 Straight 2300 Uretheral (Gotti) 2000 Other: Voiding Method Indwelling Catheter - Labs CBC & Chem 7: 06/22/21 05:20 06/09/21 10:59 Labs: Abnormal Lab Results - Last 24 Hours (Table) 06/22/21 06/22/21 Range/Units 05:20 14:40 Immature Gran # 0.10 H (0.00-0.04) X 10*3/uL Neutrophils # 10.75 H (1.80-7.70) X 10*3/uL Monocytes # 1.54 H (0.20-1.00) X 10*3/uL Urine Blood Moderate H (Negative) Assessment and Plan Assessment: 60-year-old male postoperative urinary retention. Does have history of obstructive urinary symptoms at baseline still symptomatic despite Flomax. history of 150 g prostate, based on a transrectal ultrasound from 2014 -can be discharged with a Gotti catheter, can follow-up in 5-7 days for trial of void. Discussed with him given his prostate size, and history of recurrent urinary retention he will require a robotic simple prostatectomy in the future once he heals up from his hip replacement. -continue flomax BID
--- NOTE | 2021-06-23 11:06 | P.DS ---
Providers Date of admission: 06/22/21 16:25 Expected date of discharge: 06/23/21 Attending physician: Emiliano Saba Consults: 06/21/21 08:56 Consult Physician Routine Consulting Provider: Antonia Gaffney Consult Reason/Comments: medical management Do you want consulting provider notified?: Yes 06/22/21 15:55 Consult Physician Routine Consulting Provider: Rei Pickens Consult Reason/Comments: urinary retention Do you want consulting provider notified?: Yes Primary care physician: Madina Crane - Discharge Diagnosis(es) (1) Primary localized osteoarthritis of right hip Current Visit: Yes Status: Acute (2) Status post total hip replacement, right Current Visit: Yes Status: Acute Hospital Course: This is a 60-year-old male with known history of degenerative arthritis of the right hip. The patient presents for evaluation. After discussion and consideration patient elects to proceed with total hip arthroplasty. The patient is seen preoperatively by Dr. Saba and cleared for surgery. Patient is admitted to [facility] on 06/21/2021 for total hip arthroplasty. The procedures performed without complication or sequelae. The patient is doing well postoperatively. Labs and vital signs are stable on day of discharge.Patient has been evaluated by urology and will be discharged home with a Beltran catheter and follow up as an outpatient. On day of discharge patient's hip incision is healing well. There is minimal erythema. There is no drainage noted at this time. There is minimal soft tissue swelling to the hip and thigh. Patient has full foot and ankle motion without difficulty or pain. Neurovascular status to the right lower extremity is intact. Opioid start talking form is discussed and signed. Patient is discharged home in good condition. Please see med rec for accurate list of home medications. Patient Condition at Discharge: Good Plan - Discharge Summary Discharge Rx Participant: No New Discharge Prescriptions: New HYDROcodone/APAP 7.5-325MG [[place] 7.5-325] 1 - 2 tab PO Q6H PRN #32 tab PRN Reason: Pain Ondansetron Odt [Zofran Odt] 1 tab PO Q8HR PRN #10 tab PRN Reason: Nausea Aspirin 325 mg PO BID #60 tab Sennosides [Senokot] 2 tab PO DAILY PRN #60 tablet PRN Reason: Constipation Continue methocarbamoL [Robaxin] 750 mg PO Q6H PRN PRN Reason: Pain Propranolol HCl [Inderal LA] 80 mg PO 1700 Meloxicam 15 mg PO DAILY Meclizine HCl 25 mg PO TID PRN PRN Reason: Vertigo Glucosamine/Chondr [place] A Sod [[place] Bi-Flex Caplet] 1 each PO DAILY Pravastatin Sodium [Pravachol] 20 mg PO HS Tamsulosin HCl [Flomax] 0.4 mg PO QAM Zinc 50 mg PO DAILY Cholecalciferol [Vitamin D3 (25 Mcg = 1000 Iu)] 125 mcg PO DAILY Ascorbic Acid [Vitamin C] 500 mg PO DAILY hydroCHLOROthiazide 25 mg PO DAILY Discharge Medication List Meclizine HCl 25 mg PO TID PRN 11/28/17 [History] Meloxicam 15 mg PO DAILY 11/28/17 [History] Propranolol HCl [Inderal LA] 80 mg PO 1700 11/28/17 [History] methocarbamoL [Robaxin] 750 mg PO Q6H PRN 11/28/17 [History] Ascorbic Acid [Vitamin C] 500 mg PO DAILY 06/17/21 [History] Cholecalciferol [Vitamin D3 (25 Mcg = 1000 Iu)] 125 mcg PO DAILY 06/17/21 [History] Glucosamine/Chondr [place] A Sod [[place]ste[place] Bi-Flex Caplet] 1 each PO DAILY 06/17/21 [Hi story] Pravastatin Sodium [Pravachol] 20 mg PO HS 06/17/21 [History] Tamsulosin HCl [Flomax] 0.4 mg PO QAM 06/17/21 [History] Zinc 50 mg PO DAILY 06/17/21 [History] hydroCHLOROthiazide 25 mg PO DAILY 06/17/21 [History] Aspirin 325 mg PO BID #60 tab 06/21/21 [Rx] HYDROcodone/APAP 7.5-325MG [[place] 7.5-325] 1 - 2 tab PO Q6H PRN #32 tab 06/21/21 [Rx] Ondansetron Odt [Zofran Odt] 1 tab PO Q8HR PRN #10 tab 06/21/21 [Rx] Sennosides [Senokot] 2 tab PO DAILY PRN #60 tablet 06/21/21 [Rx] Follow up Appointment(s)/Referral(s): Madina Crane NPC [Primary Care Provider] - 06/30/21 9:00 am Rei Pickens MD [STAFF PHYSICIAN] - 1 Week (call for appt for beltran removal. office will call with appointment time) [facility], [NON-STAFF] - As Needed Emiliano Saba DO [Doctor of Osteopathic Medicine] - 07/07/21 1:15 pm (With Christie) Patient Instructions/Handouts: Anterior Hip Replacement (DC) Activity/Diet/Wound Care/Special Instructions: Weightbearing as tolerated with walker. Leave dressing intact. Dressing may be removed by home care nurse or by patient in 7 days. Then change dressing twice daily until follow up. May shower with initial dressing intact and after removal. If dressing become saturated, please remove. Please take aspirin 325mg twice daily for 30 days to prevent blood clots. Recommend use of compression stockings daily until follow up to help prevent swelling and blood clots. May remove at night before sleeping. Please follow-up with [facility] in 2 weeks and call with any questions or concerns, . Discharge Disposition: HOME WITH HOME HEALTH SERVICES
== END 2021-06-23 12:57 | disposition home health service (06) ==
LOC: OR 08:06 → EDSTATUS 09:05 → 4SSUR 15:11 → OR 06-22 16:25
PROVIDERS: ADMIT Orthopaedic Surgery; ATTEND Orthopaedic Surgery
DX: M16.11 Unilateral primary osteoarthritis, right hip (principal); I10 Essential (primary) hypertension; E78.5 Hyperlipidemia, unspecified; R12 Heartburn; G47.33 Obstructive sleep apnea (adult) (pediatric); N40.1 Benign prostatic hyperplasia with lower urinary tract symptoms; R33.8 Other retention of urine; Z20.822 Contact with and (suspected) exposure to COVID-19; K21.9 Gastro-esophageal reflux disease without esophagitis; M51.36 Other intervertebral disc degeneration, lumbar region; E66.9 Obesity, unspecified; Z68.39 Body mass index [BMI] 39.0-39.9, adult; L30.9 Dermatitis, unspecified; Z79.899 Other long term (current) drug therapy; Z79.82 Long term (current) use of aspirin; Z79.1 Long term (current) use of non-steroidal anti-inflammatories (NSAID); Z88.0 Allergy status to penicillin; Z88.2 Allergy status to sulfonamides; Z88.1 Allergy status to other antibiotic agents; Z87.19 Personal history of other diseases of the digestive system; Z86.16 Personal history of COVID-19; Z87.891 Personal history of nicotine dependence; Z86.14 Personal history of Methicillin resistant Staphylococcus aureus infection; Z87.440 Personal history of urinary (tract) infections; Z80.7 Family history of other malignant neoplasms of lymphoid, hematopoietic and related tissues
CPT/HCPCS: 27130; 97161; 97535; 97165; 86891; 86900; 86901; 80053; 85025; 85027; 85610; 85730; 86850; 81003; 81001; 88300; 87635; 73501; 93005; G0378 ×2; P9022; C1776; J0171; J1100; J2405; J1885 ×2; J2795; J0735; J1170 ×2; J1790

== ENCOUNTER 2021-07-02 12:41 | Inpatient (IN) | payer OTHER ==
--- NOTE | 2021-07-02 13:55 | ED ---
Male Urogenital HPI - General Source: patient, RN notes reviewed Mode of arrival: wheelchair Limitations: no limitations <Emiliano Conti - Last Filed: 07/02/21 14:59> <Eusebio West - Last Filed: 07/02/21 20:34> - General Chief complaint: Urogenital Stated complaint: Blood in Urine Time Seen by Provider: 07/02/21 13:43 - History of Present Illness Initial comments: Patient's 60-year-old male presenting with difficulty urinating. Patient states that he had hip replacement on the right side on June 21. After surgery was unable to urinate so catheter was placed on . Patient states that there is occasional red clot flow since the . Starting yesterday became unable to urinate with increased generalize fatigue. Patient states he talked to Dr. Delgadillo and was instructed to remove catheter. She states that with removal of catheter lots of bright red clots were seen and flushed. Patient states that catheter was then replaced but still feels pressure without relief. Patient denies any fever or nausea, with slight discomfort at this time. (Emiliano Conti) - Related Data Home Medications Medication Instructions Recorded Confirmed Meclizine HCl 25 mg PO TID PRN 11/28/17 07/02/21 Meloxicam 15 mg PO DAILY 11/28/17 07/02/21 Propranolol HCl [Inderal LA] 80 mg PO DAILY@1700 11/28/17 07/02/21 methocarbamoL [Robaxin] 750 mg PO Q6H PRN 11/28/17 07/02/21 Ascorbic Acid [Vitamin C] 500 mg PO DAILY 06/17/21 07/02/21 Glucosamine/Chondr [place] A Sod [[place] 1 tab PO DAILY 06/17/21 07/02/21 Bi-Flex Caplet] Pravastatin Sodium [Pravachol] 20 mg PO HS 06/17/21 07/02/21 Tamsulosin HCl [Flomax] 0.4 mg PO DAILY 06/17/21 07/02/21 Zinc 50 mg PO DAILY 06/17/21 07/02/21 hydroCHLOROthiazide 25 mg PO DAILY 06/17/21 07/02/21 Cholecalciferol (Vitamin D3) 125 mcg PO DAILY 07/02/21 07/02/21 [Vitamin D3 (125 MCG = 5,000 IU)] Previous Rx's Medication Instructions Recorded Aspirin 325 mg PO BID #60 tab 06/21/21 HYDROcodone/APAP 7.5-325MG [[place] 1 - 2 tab PO Q6H PRN #32 tab 06/21/21 7.5-325] Ondansetron Odt [Zofran Odt] 1 tab PO Q8HR PRN #10 tab 06/21/21 Sennosides [Senokot] 2 tab PO DAILY PRN #60 tablet 06/21/21 Allergies Allergy/AdvReac Type Severity Reaction Status Date / Time Penicillins Allergy Dyspnea Verified 07/02/21 18:58 sulfamethoxazole Allergy Rash/Hives Verified 07/02/21 18:58 [From Bactrim] trimethoprim [From Bactrim] Allergy Rash/Hives Verified 07/02/21 18:58 Review of Systems ROS Other: All systems not noted in ROS Statement are negative. <Emiliano Conti - Last Filed: 07/02/21 14:59> ROS Other: All systems not noted in ROS Statement are negative. <Eusebio West - Last Filed: 07/02/21 20:34> ROS Statement: Those systems with pertinent positive or pertinent negative responses have been documented in the HPI. Past Medical History Past Medical History: Osteoarthritis (OA), Skin Disorder, Sleep Apnea/CPAP/BIPAP Additional Past Medical History / Comment(s): high heart rate,uses cpap,hx colon polyps,eczema legs,Covid Sep 2020 History of Any Multi-Drug Resistant Organisms: MRSA Date of last positivie culture/infection: 12/07/17 MDRO Source:: KNEE Past Surgical History: Joint Replacement Additional Past Surgical History / Comment(s): colonoscopy,lt thumb ligament repair, hip Past Anesthesia/Blood Transfusion Reactions: No Reported Reaction, Motion Sickness Additional Past Anesthesia/Blood Transfusion Reaction / Comment(s): vertigo,no hx blood transfusion Past Psychological History: No Psychological Hx Reported Smoking Status: Former smoker Past Alcohol Use History: None Reported Past Drug Use History: None Reported - Past Family History Mother Family Medical History: Cancer Additional Family Medical History / Comment(s): lymphnode CA <Emiliano Conti - Last Filed: 07/02/21 14:59> General Exam Limitations: no limitations General appearance: alert, in no apparent distress Respiratory exam: Present: normal lung sounds bilaterally. Absent: respiratory distress, wheezes, rales, rhonchi, stridor Cardiovascular Exam: Present: regular rate, normal rhythm, normal heart sounds. Absent: systolic murmur, diastolic murmur, rubs, gallop, clicks GI/Abdominal exam: Present: soft, normal bowel sounds. Absent: distended, tenderness, guarding, rebound, rigid exam: Present: normal inspection, urethral discharge (clot) Back exam: Present: normal inspection Neurological exam: Present: alert, oriented X3 Skin exam: Present: warm, dry, intact, normal color. Absent: rash <Emiliano Conti - Last Filed: 07/02/21 14:59> Course Vital Signs 07/02/21 12:56 Temperature 97.2 F L Pulse Rate 112 H Respiratory 18 Rate Blood Pressure 142/74 O2 Sat by Pulse 94 L Oximetry Medical Decision Making <Emiliano Conti - Last Filed: 07/02/21 14:59> - Lab Data Result diagrams: 07/02/21 19:30 07/02/21 19:30 <Eusebio West - Last Filed: 07/02/21 20:34> - Medical Decision Making Patient did have noted hematuria, bladder retention Gotti catheter was placed irrigated feels greatly improved be discharged in stable condition. (Emiliano Conti) Patient is a 60-year-old male that was previously discharged by the mid-level provider but stayed in the emergency department or to concern for continued urinary retention. I was notified that despite replacing the Gotti catheter and irrigating, he was still having urinary retention with frequent clots. We replaced the Gotti catheter second time and reassessed. He continued to have urinary retention with continued clots. Patient states he feels fatigued. He continues to have the clotting. He was recently in the hospital for a hip replacement and had urinary retention which she does have a history of at that time. She was discharged home in a Gotti catheter last week. I discussed with him that due to the continued need for irrigation he will be admitted to the hospital. There were in agreement this plan. I ordered basic laboratory studies over concern for possible symptomatic anemia. Patient's hemoglobin is 12.0 which is slightly below his baseline of 13 last week. He has had surgery since then. Patient does have hematuria. Is a mild leukocytosis of 12.6. No other acute complaints at this time. Patient does have a significant amount of WBCs and he will be given a one-time dose of Rocephin here in the department. He was in agreement this plan. Patient will be admitted to the hospital. I spoke with urology Dr. Jaime who accepted the patient as a consult. He requested that we do not use a 3 way catheter with continuous irrigation but instead do intermittent hand irrigation. Medication order to nursing staff was placed by myself. I spoke with the admitting team under Dr. De Souza who accepted the patient. Therefore patient was admitted in stable condition. (Eusebio West) - Lab Data Lab Results 07/02/21 Range/Units 14:15 Urine Color Red Urine Appearance Bloody (Clear) Urine RBC >182 H (0-5) /hpf Disposition Is patient prescribed a controlled substance at d/c from ED?: No Time of Disposition: 14:59 <Emiliano Conti - Last Filed: 07/02/21 14:59> <Eusebio West - Last Filed: 07/02/21 20:34> Clinical Impression: Urinary retention, Hematuria Disposition: ADMITTED IP TO THIS HOSP Condition: Stable
[2021-07-02 14:35] LABS: Color,Urine Red; RBC,Urine >182 /hpf (0-5)
[2021-07-02 14:36] LABS: Appearance,Urine Bloody (Clear)
[2021-07-02] MEDS ORDERED: NALOXONE 0.4 MG/ML 1 ML VIAL IV PRN (18:46)
[2021-07-02] MEDS ORDERED: MORPHINE SULFATE 4 MG/ML SYRINGE IV PRN (18:46)
[2021-07-02 19:51] LABS: Basophils # (A) 0.1 k/uL (0-0.2); Basophils % (A) 0 %; Eosinophils # (A) 0.2 k/uL (0-0.7); Eosinophils % (A) 2 %; HCT 35.8 % (39.0-53.0); Lymphocytes # (A) 1.1 k/uL (1.0-4.8); Lymphocytes % (A) 8 %; MCH 31.5 pg (25.0-35.0); MCHC 33.6 g/dL (31.0-37.0); MCV 93.9 fL (80.0-100.0); Mean Platelet Volume 7.1; Monocytes # (A) 0.6 k/uL (0-1.0); Monocytes % (A) 5 %; Neutrophils # (A) 10.5 k/uL (1.3-7.7); Neutrophils % (A) 84 %; Platelet Count 271 k/uL (150-450); RBC 3.81 m/uL (4.30-5.90); RDW 13.2 % (11.5-15.5); WBC 12.6 k/uL (3.8-10.6)
[2021-07-02 20:02] LABS: RBC,Urine >182 /hpf (0-5); WBC,Urine 72 /hpf (0-5)
[2021-07-02 20:04] LABS: Color,Urine Red
[2021-07-02 20:05] LABS: Appearance,Urine Bloody (Clear)
[2021-07-02 20:07] LABS: African American GFR (CKD) >90 (>60 ml/min/1.73 sqM); Anion Gap 5 mmol/L; Blood Urea Nitrogen 11 mg/dL (9-20); Calcium 8.9 mg/dL (8.4-10.2); Carbon Dioxide 27 mmol/L (22-30); Chloride 101 mmol/L (98-107); Glucose 134 mg/dL (74-99); Magnesium 1.8 mg/dL (1.6-2.3); Non-African American GFR(CKD) >90 (>60 ml/min/1.73 sqM); Potassium 4.2 mmol/L (3.5-5.1); Sodium 133 mmol/L (137-145)
--- NOTE | 2021-07-02 23:25 | P.HPIM ---
History of Present Illness H&P Date: 07/02/21 Chief Complaint: Zayda hematuria 60-year-old male with osteoarthritis and obstructive sleep apnea, BPH Enzymes in due to zayda hematuria. He was at his baseline status of health came in about 10 days ago for scheduled right total hip arthroplasty which he tolerated well however postop he was having some difficulty urinating he has history of BPH, Gotti catheter was inserted this was complicated later by seeing blood clots occasionally however yesterday he noticed that he wasn't able to urinate, otherwise denies any fevers or chills denies any abdominal pain nausea or vomiting he's been back and forth in contact with his urologist, who recommended he comes into the hospital for replacement of his Gotti catheter. Upon patient arrival he was assessed large amount of clots were appearing in the urinary bag after being flushed this was again blocked couple times despite replacing and flushing. Urology was contacted who did not recommended a three- way irrigation and recommended to continue with when necessary manual flushing of the Gotti cath and assessing postvoid residual. Neurology to evaluate the patient in a.m. Patient hemoglobin is 12 down from a baseline of 14.7 Patient denies any history of GI bleeding or bleeding tendencies denies any history of hematuria. He denies being on any blood thinners however he was started on full dose aspirin twice a day post hip replacement Review of Systems Pertinent positives as noted in HPI. All other systems were reviewed and are negative Past Medical History Past Medical History: Osteoarthritis (OA), Skin Disorder, Sleep Apnea/CPAP/BIPAP Additional Past Medical History / Comment(s): high heart rate,uses cpap,hx colon polyps,eczema legs,Covid Sep 2020 History of Any Multi-Drug Resistant Organisms: MRSA Date of last positivie culture/infection: 12/07/17 MDRO Source:: KNEE Past Surgical History: Joint Replacement Additional Past Surgical History / Comment(s): colonoscopy,lt thumb ligament repair, hip Past Anesthesia/Blood Transfusion Reactions: No Reported Reaction, Motion Sickness Additional Past Anesthesia/Blood Transfusion Reaction / Comment(s): vertigo,no hx blood transfusion Past Psychological History: No Psychological Hx Reported Smoking Status: Former smoker Past Alcohol Use History: None Reported Past Drug Use History: None Reported - Past Family History Mother Family Medical History: Cancer Additional Family Medical History / Comment(s): lymphnode CA Medications and Allergies Home Medications Medication Instructions Recorded Confirmed Type Meclizine HCl 25 mg PO TID PRN 11/28/17 07/02/21 History Meloxicam 15 mg PO DAILY 11/28/17 07/02/21 History Propranolol HCl [Inderal LA] 80 mg PO DAILY@1700 11/28/17 07/02/21 History methocarbamoL [Robaxin] 750 mg PO Q6H PRN 11/28/17 07/02/21 History Ascorbic Acid [Vitamin C] 500 mg PO DAILY 06/17/21 07/02/21 History Glucosamine/Chondr [place] A Sod [Osteo 1 tab PO DAILY 06/17/21 07/02/21 History Bi-Flex Caplet] Pravastatin Sodium [Pravachol] 20 mg PO HS 06/17/21 07/02/21 History Tamsulosin HCl [Flomax] 0.4 mg PO DAILY 06/17/21 07/02/21 History Zinc 50 mg PO DAILY 06/17/21 07/02/21 History hydroCHLOROthiazide 25 mg PO DAILY 06/17/21 07/02/21 History Aspirin 325 mg PO BID #60 tab 06/21/21 07/02/21 Rx HYDROcodone/APAP 7.5-325MG [[place] 1 - 2 tab PO Q6H PRN #32 tab 06/21/21 07/02/21 Rx 7.5-325] Ondansetron Odt [Zofran Odt] 1 tab PO Q8HR PRN #10 tab 06/21/21 07/02/21 Rx Sennosides [Senokot] 2 tab PO DAILY PRN #60 tablet 06/21/21 07/02/21 Rx Cholecalciferol (Vitamin D3) 125 mcg PO DAILY 07/02/21 07/02/21 History [Vitamin D3 (125 MCG = 5,000 IU)] Allergies Allergy/AdvReac Type Severity Reaction Status Date / Time Penicillins Allergy Dyspnea Verified 07/02/21 18:58 sulfamethoxazole Allergy Rash/Hives Verified 07/02/21 18:58 [From Bactrim] trimethoprim [From Bactrim] Allergy Rash/Hives Verified 07/02/21 18:58 Physical Exam Vitals: Vital Signs Temp Pulse Resp BP Pulse Ox 07/02/21 12:56 97.2 F L 112 H 18 142/74 94 L Intake and Output 07/02/21 07/02/21 07/02/21 06:59 14:59 22:59 Output Total 75 1000 Balance -75 -1000 Output: Urine 75 1000 Uretheral (Gotti) 75 1000 Other: Weight 127.006 kg Constitutional: No acute distress, conversant, pleasant Eyes: Anicteric sclerae, moist conjunctiva, Pupils equal round reactive to light ENMT: NC/AT Oropharynx clear, no erythema, or exudates Neck: Supple, FROM, no masses, or JVD No carotid bruits No thyromegaly Lungs: Clear to auscultation Clear to percussion Normal respiratory effort, no accessory muscle use Cardiovascular: Heart regular in rate and rhythm, No murmurs, gallops, or rubs No peripheral edema Abdominal: Soft Nontender, no guarding, rebound or rigidity Abdomen moving with respiration Normoactive bowel sounds No hepatomegaly, No splenomegaly No palpable mass No abdominal wall hernia noted Zayda hematuria in his urinary bag Skin: Normal temperature, tone, texture, turgor No induration No subcutaneous nodules No rash, lesions No ulcers Extremities: Right hip surgical wound looks clean dry and intact No digital cyanosis No clubbing Pedal pulses intact and symmetrical Radial pulses intact and symmetrical No calf tenderness Psychiatric: Alert and oriented to person, place and time Appropriate affect fair judgement Neuro Muscles Strength 5/5 in all 4 extremities Sensation to light touch grossly present throughout Cranial nerves II-XII grossly intact No focal sensory deficits Lymphatics: no palpable cervical or supraclavicular , or inguinal lymph nodes Results CBC & Chem 7: 07/02/21 19:30 07/02/21 19:30 Labs: Abnormal Lab Results - Last 24 Hours (Table) 07/02/21 07/02/21 Range/Units 14:15 19:30 WBC 12.6 H (3.8-10.6) k/uL RBC 3.81 L (4.30-5.90) m/uL Hgb 12.0 L (13.0-17.5) gm/dL Hct 35.8 L (39.0-53.0) % Neutrophils # 10.5 H (1.3-7.7) k/uL Urine RBC >182 H (0-5) /hpf Assessment and Plan Assessment: Zayda hematuria When necessary manual irrigation and flushing her urology recommendations Trend hemoglobin close monitoring We'll consider blood transfusion if patient becomes symptomatic or significant drop in hemoglobin, baseline 14.7 Avoid blood thinners Mechanical DVT prophylaxis Check PT/INR 10 days post right total hip arthroplasty Pain control control Surgical wound looks dry clean and intact Hold aspirin secondary to zayda hematuria as above and drop in hemoglobin Obstructive sleep apnea Encouraged patient to use CPAP Anticipated length of stay less than 2 midnights Anticipated discharge home Full code
[2021-07-03] MEDS: HYDROcodone/APAP 7.5-325MG 1 EACH TAB PO PRN ×3 (00:39→20:54)
[2021-07-03 00:53] LABS: Basophils % (A) 0 %; Eosinophils # (A) 0.2 k/uL (0-0.7); Eosinophils % (A) 2 %; HCT 34.6 % (39.0-53.0); HGB 11.4 gm/dL (13.0-17.5); INR 1.1 (<1.2); Lymphocytes # (A) 1.2 k/uL (1.0-4.8); Lymphocytes % (A) 11 %; MCH 31.3 pg (25.0-35.0); MCHC 32.8 g/dL (31.0-37.0); MCV 95.2 fL (80.0-100.0); Monocytes # (A) 0.5 k/uL (0-1.0); Monocytes % (A) 5 %; Neutrophils # (A) 8.4 k/uL (1.3-7.7); Neutrophils % (A) 80 %; Partial Thromboplastin Time 24.5 sec (22.0-30.0); Platelet Count 279 k/uL (150-450); Prothrombin Time 11.6 sec (9.0-12.0); RBC 3.64 m/uL (4.30-5.90); RDW 13.4 % (11.5-15.5); WBC 10.6 k/uL (3.8-10.6)
[2021-07-03] MEDS: TAMSULOSIN 0.4 MG CAP.ER.24H PO SCH (07:23)
[2021-07-03 07:39] LABS: Basophils % (A) 0 %; Eosinophils # (A) 0.2 k/uL (0-0.7); Eosinophils % (A) 2 %; HCT 34.1 % (39.0-53.0); Lymphocytes # (A) 1.2 k/uL (1.0-4.8); Lymphocytes % (A) 12 %; MCH 31.1 pg (25.0-35.0); MCHC 32.3 g/dL (31.0-37.0); Mean Platelet Volume 7.4; Monocytes # (A) 0.6 k/uL (0-1.0); Monocytes % (A) 6 %; Neutrophils % (A) 78 %; Platelet Count 246 k/uL (150-450); RBC 3.55 m/uL (4.30-5.90); RDW 12.8 % (11.5-15.5); WBC 10.3 k/uL (3.8-10.6)
--- NOTE | 2021-07-03 08:18 | P.GSCN ---
History of Present Illness Consult date: 07/03/21 History of present illness: 60 yo who went into urine retention post hip replacement. He failed a voiding trial. He has nursing home bph treated by dr jimenez. He saw dr ramirez who recommended f/u in the office. He developed hematuria and clot retention. He failed a voiding trial yesterday when the cath was pulled. He is now in the hospital in urine retention. We were asked to see. THe patient is on flomax bid. The catheter has old blood in the bag. Review of Systems All systems: negative - Constitutional Denies fever, Denies weight loss - EENT Eyes: denies blurred vision Ears, nose, mouth and throat: Denies dysphagia - Cardiovascular Denies chest pain, Denies shortness of breath - Respiratory Denies cough, Denies 7 - Gastrointestinal Reports as per HPI - Genitourinary Denies dysuria, Denies hematuria - Integumentary Denies rash, Denies unusual bruising - Neurological Denies headaches, Denies syncope - Hematologic/Lymphatic Denies easy bleeding, Denies easy bruising Past Medical History Past Medical History: Osteoarthritis (OA), Skin Disorder, Sleep Apnea/CPAP/BIPAP Additional Past Medical History / Comment(s): high heart rate,uses cpap,hx colon polyps,eczema legs,Covid Sep 2020 History of Any Multi-Drug Resistant Organisms: MRSA Year Discovered:: 12/07/17 MDRO Source:: KNEE Past Surgical History: Joint Replacement Additional Past Surgical History / Comment(s): colonoscopy,lt thumb ligament repair, hip Past Anesthesia/Blood Transfusion Reactions: No Reported Reaction, Motion Sickness Additional Past Anesthesia/Blood Transfusion Reaction / Comm: vertigo,no hx blood transfusion Past Psychological History: No Psychological Hx Reported Smoking Status: Never smoker Past Alcohol Use History: None Reported Additional Past Alcohol Use History / Comment(s): quit smoking 2004,smoked approx 25 yrs 1 1/2ppd Past Drug Use History: None Reported - Past Family History Mother Family Medical History: Cancer Additional Family Medical History / Comment(s): lymphnode CA Medications and Allergies Home Medications Medication Instructions Recorded Confirmed Type Meclizine HCl 25 mg PO TID PRN 11/28/17 07/02/21 History Meloxicam 15 mg PO DAILY 11/28/17 07/02/21 History Propranolol HCl [Inderal LA] 80 mg PO DAILY@1700 11/28/17 07/02/21 History methocarbamoL [Robaxin] 750 mg PO Q6H PRN 11/28/17 07/02/21 History Ascorbic Acid [Vitamin C] 500 mg PO DAILY 06/17/21 07/02/21 History Glucosamine/Chondr [place] A Sod [Osteo 1 tab PO DAILY 06/17/21 07/02/21 History Bi-Flex Caplet] Pravastatin Sodium [Pravachol] 20 mg PO HS 06/17/21 07/02/21 History Tamsulosin HCl [Flomax] 0.4 mg PO DAILY 06/17/21 07/02/21 History Zinc 50 mg PO DAILY 06/17/21 07/02/21 History hydroCHLOROthiazide 25 mg PO DAILY 06/17/21 07/02/21 History Aspirin 325 mg PO BID #60 tab 06/21/21 07/02/21 Rx HYDROcodone/APAP 7.5-325MG [[place] 1 - 2 tab PO Q6H PRN #32 tab 06/21/21 07/02/21 Rx 7.5-325] Ondansetron Odt [Zofran Odt] 1 tab PO Q8HR PRN #10 tab 06/21/21 07/02/21 Rx Sennosides [Senokot] 2 tab PO DAILY PRN #60 tablet 06/21/21 07/02/21 Rx Cholecalciferol (Vitamin D3) 125 mcg PO DAILY 07/02/21 07/02/21 History [Vitamin D3 (125 MCG = 5,000 IU)] Allergies Allergy/AdvReac Type Severity Reaction Status Date / Time Penicillins Allergy Dyspnea Verified 07/02/21 18:58 sulfamethoxazole Allergy Rash/Hives Verified 07/02/21 18:58 [From Bactrim] trimethoprim [From Bactrim] Allergy Rash/Hives Verified 07/02/21 18:58 Surgical - Exam Vital Signs Temp Pulse Resp BP Pulse Ox 97.2 F L 112 H 18 142/74 94 L 07/02/21 12:56 07/02/21 12:56 07/02/21 12:56 07/02/21 12:56 07/02/21 12:56 - General well developed, well nourished, no distress - Eyes PERRL - ENT no hearing loss - Neck no masses - Respiratory normal expansion - Cardiovascular Rhythm: regular - Abdomen Abdomen: soft, non tender - Genitourinary indwelling catheter, old bloody urine - Integumentary no rash - Neurologic normal coordination, normal sensation - Musculoskeletal normal posture - Psychiatric oriented to time, oriented to person, oriented to place, speech is normal, memory intact Results - Labs 07/03/21 07:21 07/02/21 19:30 Abnormal Lab Results - Last 24 Hours (Table) 07/02/21 07/02/21 07/02/21 Range/Units 14:15 19:29 19:30 WBC 12.6 H (3.8-10.6) k/uL RBC 3.81 L (4.30-5.90) m/uL Hgb 12.0 L (13.0-17.5) gm/dL Hct 35.8 L (39.0-53.0) % Neutrophils # 10.5 H (1.3-7.7) k/uL Sodium (137-145) mmol/L Creatinine (0.66-1.25) mg/dL Glucose (74-99) mg/dL Urine RBC >182 H >182 H (0-5) /hpf Urine WBC 72 H (0-5) /hpf Urine WBC Clumps Many H (None) /hpf 07/02/21 07/03/21 Range/Units 19:30 00:15 WBC (3.8-10.6) k/uL RBC 3.64 L (4.30-5.90) m/uL Hgb 11.4 L (13.0-17.5) gm/dL Hct 34.6 L (39.0-53.0) % Neutrophils # 8.4 H (1.3-7.7) k/uL Sodium 133 L (137-145) mmol/L Creatinine 0.42 L (0.66-1.25) mg/dL Glucose 134 H (74-99) mg/dL Urine RBC (0-5) /hpf Urine WBC (0-5) /hpf Urine WBC Clumps (None) /hpf Microbiology - Last 24 Hours (Table) 07/02/21 19:29 Urine Culture - Preliminary Urine,Voided Diabetes panel 07/02/21 Range/Units 19:30 Sodium 133 L (137-145) mmol/L Potassium 4.2 (3.5-5.1) mmol/L Chloride 101 (98-107) mmol/L Carbon Dioxide 27 (22-30) mmol/L BUN 11 (9-20) mg/dL Creatinine 0.42 L (0.66-1.25) mg/dL Glucose 134 H (74-99) mg/dL Calcium 8.9 (8.4-10.2) mg/dL Calcium panel 07/02/21 Range/Units 19:30 Calcium 8.9 (8.4-10.2) mg/dL Pituitary panel 07/02/21 Range/Units 19:30 Sodium 133 L (137-145) mmol/L Potassium 4.2 (3.5-5.1) mmol/L Chloride 101 (98-107) mmol/L Carbon Dioxide 27 (22-30) mmol/L BUN 11 (9-20) mg/dL Creatinine 0.42 L (0.66-1.25) mg/dL Glucose 134 H (74-99) mg/dL Calcium 8.9 (8.4-10.2) mg/dL Adrenal panel 07/02/21 Range/Units 19:30 Sodium 133 L (137-145) mmol/L Potassium 4.2 (3.5-5.1) mmol/L Chloride 101 (98-107) mmol/L Carbon Dioxide 27 (22-30) mmol/L BUN 11 (9-20) mg/dL Creatinine 0.42 L (0.66-1.25) mg/dL Glucose 134 H (74-99) mg/dL Calcium 8.9 (8.4-10.2) mg/dL Assessment and Plan Assessment: Impression: post op urine retention. subsequent clot urine retention. bph Plan: c/w cath until urine is clear. at that time will pull cath for voiding trial. will probably need eventual surgical intervention as he has had significant urinary symptoms prior to hip surgery.
--- NOTE | 2021-07-03 08:37 | P.PCN ---
Date of Procedure: 07/03/21 Preoperative Diagnosis: Clot urinary retention Postoperative Diagnosis: Same, Procedure(s) Performed: Exchange catheter, difficult, irrigation of bladder from clot Surgeon: Maxime Jaime Pathology: none sent Condition: stable Disposition: floor Indications for Procedure: The patient has a history of a recent hip surgery. He had postoperative urinary retention. He had recent problems with bleeding from the catheter. He presented emergency room in clot urinary retention. We are asked see the patient. Description of Procedure: The patient is seen at the bedside. There is dark old blood in the catheter. He is urinating around the catheter will blood. The catheter is obviously not in the bladder based on the amount of catheter emanating from the penis The old catheters removed. I introduced a 20-Ind[place]ian coud-tip catheter into the bladder. The amount of catheter emanating from the bladder is much less than previously seen consistent with a very large prostate. I irrigated the catheter thoroughly and drained a lot of old clot out of the bladder. There is light pink urine return at the end of the irrigation Impression clot urinary retention, malplacement of catheter, very large prostate Plan we will irrigate the catheter periodically over the next few hours. This should clear up. The patient will probably need prostate enlargement addressed down the road as he does have voiding symptoms prior to his surgery
[2021-07-03 14:35] LABS: Basophils % (A) 0 %; Eosinophils # (A) 0.2 k/uL (0-0.7); Eosinophils % (A) 2 %; HCT 32.4 % (39.0-53.0); HGB 10.6 gm/dL (13.0-17.5); Lymphocytes # (A) 1.3 k/uL (1.0-4.8); Lymphocytes % (A) 12 %; MCH 30.8 pg (25.0-35.0); MCHC 32.8 g/dL (31.0-37.0); Mean Platelet Volume 7.9; Monocytes # (A) 0.5 k/uL (0-1.0); Monocytes % (A) 5 %; Neutrophils # (A) 8.4 k/uL (1.3-7.7); Neutrophils % (A) 79 %; Platelet Count 279 k/uL (150-450); RBC 3.45 m/uL (4.30-5.90); RDW 13.3 % (11.5-15.5); WBC 10.6 k/uL (3.8-10.6)
--- NOTE | 2021-07-03 15:47 | P.PN ---
Subjective Progress Note Date: 07/03/21 Hospital course: Patient is a 60-year-old male with a past medical history of tachycardia, hyperlipidemia, BPH, osteoarthritis, and obstructive sleep apnea CPAP dependent nightly. He presented to the emergency department on 07/02/21 with a chief complaint of hematuria. Patient is status post right total hip arthroplasty completed on 06/21/21 and states during postoperative period he was having difficulty urinating which resulted in Gotti catheter insertion. Patient states prior to arrival to the emergency department he noticed some bright red blood and clots in catheter tubing and was no longer able to urinate. Patient was instructed by urologist to come to the emergency department. Despite multiple attempts at Flushing patient's Gotti catheter tubing continued to be obstructed and urologist, Dr. Jaime had to come in and place a 20-Algerian coud catheter for manual irrigation. Hemoglobin is stable the patient did have a 1.4 g drop from 12.0 down to 10.6. Physical exam: Patient seen and fully evaluated at the bedside. RN also at bedside preparing for manual irrigation at this time. Patient reports feeling significantly better stating previously he felt as though his bladder was going to burst. Patient reports he is able to empty his bladder with current Gotti catheter in place and continues to have large clots in tubing. Patient denies having any other complaints or needs at this time including headache, lightheadedness, dizziness, chest pain, palpitations, or shortness of breath. Patient denies experiencing any testicular pain or swelling. Vital signs reviewed and stable. General: Nontoxic, no distress and appears stated age. Derm: Skin warm and dry, normal coloration for ethnicity. Head: Atraumatic, normocephalic and symmetric. Eyes: EOMs intact, no lid lag, and anicteric sclera Mouth: no lip lesions, mucus membranes moist Cardiovascular: regular rate and rhythm with normal S1S2, no murmur, positive posterior tibial pulses bilaterally, and cap refill < 2 seconds. Lungs: Respirations even, regular, and unlabored on room air. Lungs CTA bilatera lly, no rhonchi, no rales, no wheezing, and no accessory muscle usage. Abdominal: soft, nontender to palpation, no guarding, no appreciable organomegaly Ext: ROM intact. No gross muscle atrophy, no edema, no contractures Neuro: Speech clear, face symmetrical and CN II-XII grossly intact with no noted focal neuro deficits Psych: Alert and oriented to person, place, time, and situation. Appropriate and pleasant affect. Assessment and Plan of Care: Parker hematuria BPH -Despite multiple attempts at Flushing patient's Gotti catheter tubing continued to be obstructed and urologist, Dr. Jaime had to come in and place a 20-Algerian coud catheter for manual irrigation. -Hemoglobin is stable the patient did have a 1.4 g drop from 12.0 down to 10.6. -Urology following recommending continued manual irrigation hourly 4 hours and then as needed -Gotti care -Continue Flomax 0.4 mg daily Tachycardia -Continue daily medication regimen with propranolol 80 mg daily -Monitor vital signs. Hyperlipidemia Continue daily medication regimen with pravastatin 20 mg daily. Obstructive sleep apnea, CPAP dependent nightly -Continue use of home CPAP CODE STATUS: Full code DVT prophylaxis: SCDs Discussed with: Patient and RN Anticipated discharge date: Tomorrow morning Anticipated discharge place: Home A total of 40 minutes was spent on the care of this complex patient more than 50% of the time was spent in counseling and care coordination. Objective - Vital Signs Vital signs: Vital Signs Temp 97.7 F 07/03/21 07:00 Pulse 68 07/03/21 07:00 Resp 16 07/03/21 09:06 BP 129/74 07/03/21 07:00 Pulse Ox 98 07/03/21 07:00 Intake & Output 07/02/21 07/03/21 07/03/21 18:59 06:59 18:59 Intake Total 300 Output Total 1075 1400 1100 Balance -1075 -1100 -1100 Weight 127.006 kg 127.006 kg Intake: Oral 300 Output: Urine 1075 1400 1100 Coude 1000 Uretheral (Gotti) 1075 100 Other: Voiding Method Indwelling Catheter Indwelling Catheter # Bowel Movements 1 - Labs CBC & Chem 7: 07/03/21 14:21 07/02/21 19:30 Labs: Abnormal Lab Results - Last 24 Hours (Table) 07/02/21 07/02/21 07/02/21 Range/Units 14:15 19:29 19:30 WBC 12.6 H (3.8-10.6) k/uL RBC 3.81 L (4.30-5.90) m/uL Hgb 12.0 L (13.0-17.5) gm/dL Hct 35.8 L (39.0-53.0) % Neutrophils # 10.5 H (1.3-7.7) k/uL Sodium (137-145) mmol/L Creatinine (0.66-1.25) mg/dL Glucose (74-99) mg/dL Urine RBC >182 H >182 H (0-5) /hpf Urine WBC 72 H (0-5) /hpf Urine WBC Clumps Many H (None) /hpf 07/02/21 07/03/21 07/03/21 Range/Units 19:30 00:15 07:21 WBC (3.8-10.6) k/uL RBC 3.64 L 3.55 L (4.30-5.90) m/uL Hgb 11.4 L 11.0 L (13.0-17.5) gm/dL Hct 34.6 L 34.1 L (39.0-53.0) % Neutrophils # 8.4 H 8.0 H (1.3-7.7) k/uL Sodium 133 L (137-145) mmol/L Creatinine 0.42 L (0.66-1.25) mg/dL Glucose 134 H (74-99) mg/dL Urine RBC (0-5) /hpf Urine WBC (0-5) /hpf Urine WBC Clumps (None) /hpf Microbiology - Last 24 Hours (Table) 07/02/21 19:29 Urine Culture - Preliminary Urine,Voided
[2021-07-03] MEDS: PROPRANOLOL LA 80 MG CAP.SA.24H PO SCH (16:33)
[2021-07-03] MEDS: SENNOSIDES 8.6 MG TAB PO PRN (16:33)
[2021-07-03] MEDS: PRAVASTATIN SODIUM 20 MG TAB PO SCH (20:51)
[2021-07-04] MEDS: HYDROcodone/APAP 7.5-325MG 1 EACH TAB PO PRN ×3 (02:58→23:44)
[2021-07-04] MEDS: TAMSULOSIN 0.4 MG CAP.ER.24H PO SCH (07:44)
[2021-07-04 11:55] LABS: African American GFR (CKD) 127.6 (60.0-200.0); BUN/Creat Ratio 19.69 Ratio (12.00-20.00); Blood Urea Nitrogen 11.4 mg/dL (9.0-27.0); Calcium 8.4 mg/dL (8.7-10.3); Carbon Dioxide 26.2 mmol/L (21.6-31.8); Non-African American GFR(CKD) 110.1 (60.0-200.0)
[2021-07-04 11:59] LABS: HCT 30.5 % (39.6-50.0); HGB 9.6 g/dL (13.0-17.0); MCH 30.8 pg (27.0-32.0); MCHC 31.5 g/dL (32.0-37.0); MCV 97.8 fL (80.0-97.0); Mean Platelet Volume 9.9 fL (9.5-12.2); Platelet Count 241 X 10*3/uL (140-440); RBC 3.12 X 10*6/uL (4.40-5.60); RDW 13.2 % (11.5-14.5); WBC 11.81 X 10*3/uL (4.50-10.00)
[2021-07-04] MEDS: SENNOSIDES 8.6 MG TAB PO PRN (14:33)
[2021-07-04] MEDS: PROPRANOLOL LA 80 MG CAP.SA.24H PO SCH (16:21)
--- NOTE | 2021-07-04 16:46 | P.PN ---
Subjective Progress Note Date: 07/04/21 Hospital course: Patient is a 60-year-old male with a past medical history of tachycardia, hyperlipidemia, BPH, osteoarthritis, and obstructive sleep apnea CPAP dependent nightly. He presented to the emergency department on 07/02/21 with a chief complaint of hematuria. Patient is status post right total hip arthroplasty completed on 06/21/21 and states during postoperative period he was having difficulty urinating which resulted in Beltran catheter insertion. Patient states prior to arrival to the emergency department he noticed some bright red blood and clots in catheter tubing and was no longer able to urinate. Patient was instructed by urologist to come to the emergency department. Despite multiple attempts at Flushing patient's Beltran catheter tubing continued to be obstructed and urologist, Dr. Jaime had to come in and place a 20-Niuean coud catheter for manual irrigation. Hemoglobin is stable the patient did have a 1.4 g drop from 12.0 down to 10.6. Physical exam: Patient seen and fully evaluated at the bedside. Despite placement of Coud catheter and manual irrigation, patient continues to have significant hematuria with large clots requiring manual irrigation. Inpatient orders placed at this time as patient failed outpatient treatment. Urology updated by RN. Hgb down to 9.6. Pt denies any pain or complaints. States that he feels suprapubic/bladder pressure when he needs beltran irrigated, and is otherwise comfortable. Pt does report also feeling constipated but continues to deny having any other complaints or needs at this time including headache, lightheadedness, dizziness, chest pain, palpitations, shortness of breath, testicular pain or swelling. Vital signs reviewed and stable. General: Nontoxic, no distress and appears stated age. Derm: Skin warm and dry, normal coloration for ethnicity. Head: Atraumatic, normocephalic and symmetric. Eyes: EOMs intact, no lid lag, and anicteric sclera Mouth: no lip lesions, mucus membranes moist Cardiovascular: regular rate and rhythm with normal S1S2, no murmur, positive posterior tibial pulses bilaterally, and cap refill < 2 seconds. Lungs: Respirations even, regular, and unlabored on room air. Lungs CTA bilaterally, no rhonchi, no rales, no wheezing, and no accessory muscle usage. Abdominal: soft, nontender to palpation, no guarding, no appreciable organomegaly Ext: ROM intact. No gross muscle atrophy, no edema, no contractures Neuro: Speech clear, face symmetrical and CN II-XII grossly intact with no noted focal neuro deficits Psych: Alert and oriented to person, place, time, and situation. Appropriate and pleasant affect. Assessment and Plan of Care: Parker hematuria BPH -Despite multiple attempts at Flushing patient's Beltran catheter tubing continued to be obstructed and urologist, Dr. Jaime had to come in and place a 20-Niuean coud catheter for manual irrigation. -Hemoglobin is stable, but down to 9.6 -Urology following recommending continued manual irrigation hourly 4 hours and then as needed -Beltran care -Continue Flomax 0.4 mg daily -Continued close monitoring of hemoglobin with repeat a.m. labs. Tachycardia -Continue daily medication regimen with propranolol 80 mg daily -Monitor vital signs. Hyperlipidemia Continue daily medication regimen with pravastatin 20 mg daily. Obstructive sleep apnea, CPAP dependent nightly -Continue use of home CPAP CODE STATUS: Full code DVT prophylaxis: SCDs Discussed with: Patient and RN Anticipated discharge date: Tomorrow morning Anticipated discharge place: Home A total of 40 minutes was spent on the care of this complex patient more than 50% of the time was spent in counseling and care coordination. Objective - Vital Signs Vital signs: Vital Signs Temp 98.2 F 07/04/21 15:00 Pulse 95 07/04/21 15:00 Resp 16 07/04/21 15:00 BP 110/70 07/04/21 15:00 Pulse Ox 94 L 07/04/21 15:00 Intake & Output 07/03/21 07/04/21 07/04/21 18:59 06:59 18:59 Intake Total 800 Output Total 3850 1000 4780 Balance -3050 -1000 -4780 Intake: Oral 800 Output: Urine 3850 1000 4780 Coude 2800 1300 Uretheral (Beltran) 100 Other: Voiding Method Indwelling Catheter Indwelling Catheter Indwelling Catheter # Voids 1 - Labs CBC & Chem 7: 07/04/21 08:10 07/04/21 08:10 Labs: Abnormal Lab Results - Last 24 Hours (Table) 07/04/21 07/04/21 Range/Units 08:10 08:10 WBC 11.81 H (4.50-10.00) X 10*3/uL RBC 3.12 L (4.40-5.60) X 10*6/uL Hgb 9.6 L (13.0-17.0) g/dL Hct 30.5 L (39.6-50.0) % MCV 97.8 H (80.0-97.0) fL MCHC 31.5 L (32.0-37.0) g/dL Calcium 8.4 L (8.7-10.3) mg/dL Microbiology - Last 24 Hours (Table) 07/02/21 19:29 Urine Culture - Preliminary Urine,Voided Gram Neg Bacilli
[2021-07-04] MEDS: PRAVASTATIN SODIUM 20 MG TAB PO SCH (20:43)
--- NOTE | 2021-07-04 22:47 | P.PN ---
Progress Note - Text Progress Note Date: 07/04/21 The patient was originally seen this morning. His catheter could not be irrigated and therefore was changed by the nursing staff. When seen later in the day, the catheter was draining but could not be irrigated. I therefore replaced the catheter, again using a 20-Spanish coud-tip catheter. However, the catheter could not be irrigated. The patient is in no distress. However, if there is continued catheter malfunction, he will undergo cystoscopy, evacuation of clot, fulguration of bleeder, possibly tomorrow.
[2021-07-05] MEDS: TAMSULOSIN 0.4 MG CAP.ER.24H PO SCH (08:38)
[2021-07-05] MEDS: SENNOSIDES 8.6 MG TAB PO PRN (08:38)
[2021-07-05 09:26] LABS: HCT 28.9 % (39.6-50.0); HGB 8.9 g/dL (13.0-17.0); MCH 30.1 pg (27.0-32.0); MCHC 30.8 g/dL (32.0-37.0); MCV 97.6 fL (80.0-97.0); Mean Platelet Volume 9.8 fL (9.5-12.2); Platelet Count 229 X 10*3/uL (140-440); RBC 2.96 X 10*6/uL (4.40-5.60); RDW 13.3 % (11.5-14.5); WBC 12.49 X 10*3/uL (4.50-10.00)
[2021-07-05] MEDS ORDERED: bisacodyL 10 MG SUPP RECTAL PRN (10:10)
--- NOTE | 2021-07-05 10:21 | P.PN ---
Progress Note - Text Progress Note Date: 07/05/21 Patient is comfortable this morning. His primary complaint is constipation. Although the Gotti catheter cannot be irrigated, and his drained well overnight. The urine is faintly pink tinged, and no clots are seen within the catheter tubing. The hemoglobin level has decreased to 8.9. Consideration has been given to performing cystoscopy, evacuation of clot, and possible fulguration of bleeder. However, given that he is comfortable I intend to hold off with the hopes of the clot will simply dissolved and he will not require surgical intervention. Senokot is ordered, and I have prescribed a Dulcolax suppository as well as Colace for the constipation. I have encouraged him not to strain, as this may exacerbate the bleeding, and he may ultimately require an enema.
[2021-07-05 10:29] LABS: African American GFR (CKD) 128.1 (60.0-200.0); Anion Gap 7.9 mmol/L (4.00-12.00); BUN/Creat Ratio 14.58 Ratio (12.00-20.00); Blood Urea Nitrogen 8.4 mg/dL (9.0-27.0); Calcium 8.4 mg/dL (8.7-10.3); Carbon Dioxide 28.7 mmol/L (21.6-31.8); Non-African American GFR(CKD) 110.5 (60.0-200.0); Potassium 3.8 mmol/L (3.5-5.5)
[2021-07-05] MEDS: DOCUSATE 100 MG CAP PO SCH ×2 (10:45→17:12)
--- NOTE | 2021-07-05 14:06 | P.PN ---
Subjective Progress Note Date: 07/05/21 Patient is a 60-year-old male with a PMH of hyperlipidemia, BPH, osteoarthritis, and obstructive sleep apnea CPAP dependent nightly who presented to the emergency department on 07/02/21 with a chief complaint of hematuria. Patient is status post right total hip arthroplasty completed on 06/21/21 and states during postoperative period he was having difficulty urinating which resulted in Beltran catheter insertion. Patient states prior to arrival to the emergency department he noticed some bright red blood and clots in catheter tubing and was no longer able to urinate. Patient was instructed by urologist to come to the emergency department. Despite multiple attempts at flushing patient's beltran cat heter tubing continued to be obstructed and urologist, Dr. Jaime had to come in and place a 20-Gabonese coud catheter for manual irrigation. The patient continued to have hematuria with hemoglobin dropping from 11.4 to 8.9 on 07/05. Patient was seen and examined at the bedside on 07/05. He noted passing small amounts of clots in the Belrtan catheter and denied any additional complaints. He denied abdominal pain, fever, chills. He reports having a bowel movement earlier today after receiving a suppository. General: Non-toxic, in no acute distress, appears stated age, obese HEENT: NC/AT, anicteric sclerae, moist conjunctiva, no lid-lag, PERRLA Cardiovascular: S1/S2 wnl, no murmurs, rubs, or gallops Lungs: Clear to auscultation, normal respiratory effort, no accessory muscle use Abdominal: Soft, non-tender, non-distended, no guarding, rebound, or rigidity, Beltran catheter in place with collection bag with clots Skin: Warm, dry Extremities: No edema or contractures Psychiatric: Alert and oriented to person, place and time, appropriate affect Neuro: CN II-XII grossly intact, Strength 5/5 in all 4 extremities, Speech intact, Sensation to light touch grossly intact throughout Assessment/plan Hematuria with BPH with urinary retention status post Beltran catheter insertion -Urology recommendations appreciated -Continue to monitor hemoglobin -Continue Flomax -Beltran catheter irritation Hyperlipidemia -Continue with home Pravachol Obstructive sleep apnea -Continue with home CPAP Tachycardia, chronic -Continue home propranolol dose DVT prophylaxis -IPCDs Discussed with: Patient, Anticipated discharge date: in am Anticipated discharge place: Home Objective - Vital Signs Vital signs: Vital Signs Temp 98.8 F 07/05/21 13:53 Pulse 88 07/05/21 13:53 Resp 18 07/05/21 13:53 BP 112/68 07/05/21 13:53 Pulse Ox 96 07/05/21 13:53 Intake & Output 07/04/21 07/05/21 07/05/21 18:59 06:59 18:59 Output Total 5980 1300 1800 Balance -5980 -1300 -1800 Output: Urine 5980 1300 1800 Coude 1300 500 Other: Voiding Method Indwelling Catheter Indwelling Catheter Indwelling Catheter # Voids 1 # Bowel Movements 1 - Labs CBC & Chem 7: 07/05/21 06:19 07/05/21 06:19 Labs: Abnormal Lab Results - Last 24 Hours (Table) 07/05/21 07/05/21 Range/Units 06:19 06:19 WBC 12.49 H (4.50-10.00) X 10*3/uL RBC 2.96 L (4.40-5.60) X 10*6/uL Hgb 8.9 L (13.0-17.0) g/dL Hct 28.9 L (39.6-50.0) % MCV 97.6 H (80.0-97.0) fL MCHC 30.8 L (32.0-37.0) g/dL Absolute Nucleated RBC 0.02 H (0.00-0.00) X 10*3/uL NRBC/100 WBC Diff 0.2 H (0.0-0.0) /100 WBCS BUN 8.4 L (9.0-27.0) mg/dL Calcium 8.4 L (8.7-10.3) mg/dL Microbiology - Last 24 Hours (Table) 07/02/21 19:29 Urine Culture - Final Urine,Voided Escherichia coli
[2021-07-05] MEDS: PROPRANOLOL LA 80 MG CAP.SA.24H PO SCH (17:29)
[2021-07-05] MEDS: PRAVASTATIN SODIUM 20 MG TAB PO SCH (20:07)
--- NOTE | 2021-07-06 07:59 | P.CNOR ---
History of Present Illness - [facility] Consult date: 07/06/21 Consult reason: other (Follow-up right hip.) History of present illness: This is a 60-year-old male who is approximately 2 weeks status post total right hip arthroplasty with direct anterior approach by Dr. Emiliano Saba. The patient states that his hip is doing very well. He does continue to have some urinary retention postoperatively and has been admitted for urology consult and further evaluation. The patient's requested that we stop in and see the patient. He is due for his 2 week postop visit tomorrow. He is afebrile. No new complaints or concerns regarding the hip. He is currently being worked up for prostate issues. Past Medical History Past Medical History: Osteoarthritis (OA), Skin Disorder, Sleep Apnea/CPAP/BIPAP Additional Past Medical History / Comment(s): high heart rate,uses cpap,hx colon polyps,eczema legs,Covid Sep 2020 History of Any Multi-Drug Resistant Organisms: MRSA Year Discovered:: 12/07/17 MDRO Source:: KNEE Past Surgical History: Joint Replacement Additional Past Surgical History / Comment(s): colonoscopy,lt thumb ligament repair, hip Past Anesthesia/Blood Transfusion Reactions: No Reported Reaction, Motion Sickness Additional Past Anesthesia/Blood Transfusion Reaction / Comm: vertigo,no hx blood transfusion Past Psychological History: No Psychological Hx Reported Smoking Status: Never smoker Past Alcohol Use History: None Reported Additional Past Alcohol Use History / Comment(s): quit smoking 2004,smoked approx 25 yrs 1 1/2ppd Past Drug Use History: None Reported - Past Family History Mother Family Medical History: Cancer Additional Family Medical History / Comment(s): lymphnode CA Medications and Allergies Home Medications Medication Instructions Recorded Confirmed Type Meclizine HCl 25 mg PO TID PRN 11/28/17 07/02/21 History Meloxicam 15 mg PO DAILY 11/28/17 07/02/21 History Propranolol HCl [Inderal LA] 80 mg PO DAILY@1700 11/28/17 07/02/21 History methocarbamoL [Robaxin] 750 mg PO Q6H PRN 11/28/17 07/02/21 History Ascorbic Acid [Vitamin C] 500 mg PO DAILY 06/17/21 07/02/21 History Glucosamine/Chondr [place]jillo A Sod [Osteo 1 tab PO DAILY 06/17/21 07/02/21 History Bi-Flex Caplet] Pravastatin Sodium [Pravachol] 20 mg PO HS 06/17/21 07/02/21 History Tamsulosin HCl [Flomax] 0.4 mg PO DAILY 06/17/21 07/02/21 History Zinc 50 mg PO DAILY 06/17/21 07/02/21 History hydroCHLOROthiazide 25 mg PO DAILY 06/17/21 07/02/21 History Aspirin 325 mg PO BID #60 tab 06/21/21 07/02/21 Rx HYDROcodone/APAP 7.5-325MG [Hunt 1 - 2 tab PO Q6H PRN #32 tab 06/21/21 07/02/21 Rx 7.5-325] Ondansetron Odt [Zofran Odt] 1 tab PO Q8HR PRN #10 tab 06/21/21 07/02/21 Rx Sennosides [Senokot] 2 tab PO DAILY PRN #60 tablet 06/21/21 07/02/21 Rx Cholecalciferol (Vitamin D3) 125 mcg PO DAILY 07/02/21 07/02/21 History [Vitamin D3 (125 MCG = 5,000 IU)] Allergies Allergy/AdvReac Type Severity Reaction Status Date / Time Penicillins Allergy Dyspnea Verified 07/02/21 18:58 sulfamethoxazole Allergy Rash/Hives Verified 07/02/21 18:58 [From Bactrim] trimethoprim [From Bactrim] Allergy Rash/Hives Verified 07/02/21 18:58 Physical Examination This is a pleasant 60-year-old gentleman in no acute distress. He is alert and oriented 3. Exam of the head neck reveal no obvious deformity. Exam the upper extremities is unremarkable. Exam of the lower extremities reveals that his right anterior hip incision is healing well. The Optifoam dressing has been removed. There is no erythema and minimal soft tissue swelling about the hip. He is able to get to a standing position out of the chair independently. He continues to use a walker for ambulation. He has full foot and ankle motion without difficulty or pain. Neurovascular status to the lower extremities is intact. Results - Labs Labs: Abnormal Lab Results - Last 24 Hours (Table) 07/05/21 07/05/21 Range/Units 06:19 06:19 WBC 12.49 H (4.50-10.00) X 10*3/uL RBC 2.96 L (4.40-5.60) X 10*6/uL Hgb 8.9 L (13.0-17.0) g/dL Hct 28.9 L (39.6-50.0) % MCV 97.6 H (80.0-97.0) fL MCHC 30.8 L (32.0-37.0) g/dL Absolute Nucleated RBC 0.02 H (0.00-0.00) X 10*3/uL NRBC/100 WBC Diff 0.2 H (0.0-0.0) /100 WBCS BUN 8.4 L (9.0-27.0) mg/dL Calcium 8.4 L (8.7-10.3) mg/dL H & H 07/02/21 07/03/21 07/03/21 Range/Units 19:30 00:15 07:21 Hgb 12.0 L 11.4 L 11.0 L (13.0-17.5) gm/dL Hct 35.8 L 34.6 L 34.1 L (39.0-53.0) % 07/03/21 07/04/21 07/05/21 Range/Units 14:21 08:10 06:19 Hgb 10.6 L 9.6 L 8.9 L (13.0-17.5) gm/dL Hct 32.4 L 30.5 L 28.9 L (39.0-53.0) % Coagulation 07/03/21 Range/Units 00:15 INR 1.1 (<1.2) Result Diagrams: 07/05/21 06:19 07/05/21 06:19 Assessment and Plan (1) Hematuria Current Visit: Yes Status: Acute Code(s): R31.9 - HEMATURIA, UNSPECIFIED SNOMED Code(s): 02653583 (2) Urinary retention Current Visit: Yes Status: Acute Code(s): R33.9 - RETENTION OF URINE, UNSPECIFIED SNOMED Code(s): 602400204 (3) Status post total hip replacement, right Current Visit: No Status: Acute Code(s): Z96.641 - PRESENCE OF RIGHT ARTIFICIAL HIP JOINT SNOMED Code(s): 396180042065 Plan: The clinical means are discussed with the patient. He is doing well postoperatively as far as the hip is concerned. There is some discussion regarding possible neurologic intervention. It is recommended that he wait at least 6 postoperatively for any invasive procedures regarding the prostate or bladder unless absolutely urgent to do so sooner. The patient is given a prescription for physical therapy to begin outpatient after he is discharged to home. He is follow-up in our office in 4 weeks.
[2021-07-06] MEDS: TAMSULOSIN 0.4 MG CAP.ER.24H PO SCH (08:08)
[2021-07-06] MEDS: DOCUSATE 100 MG CAP PO SCH (08:09)
[2021-07-06 11:14] LABS: HCT 30.1 % (39.6-50.0); HGB 9.4 g/dL (13.0-17.0); MCH 30.6 pg (27.0-32.0); MCHC 31.2 g/dL (32.0-37.0); Platelet Count 262 X 10*3/uL (140-440); RBC 3.07 X 10*6/uL (4.40-5.60); RDW 13.5 % (11.5-14.5); WBC 11.79 X 10*3/uL (4.50-10.00)
--- NOTE | 2021-07-06 14:41 | P.DS ---
Providers Date of admission: 07/04/21 11:55 Expected date of discharge: 07/06/21 Attending physician: To De Souza MD Consults: 07/02/21 18:47 Consult Physician Routine Consulting Provider: Maxime Jaime Consult Reason/Comments: beltran, hematuria, urinary retention Do you want consulting provider notified?: Yes 07/06/21 08:07 Consult Physician Routine Consulting Provider: Emiliano Saba Consult Reason/Comments: recent right hip sx Do you want consulting provider notified?: Already Contacted Primary care physician: Madina Catalan [facility] Course: Patient is a 60-year-old male with a PMH of hyperlipidemia, BPH, osteoarthritis, and obstructive sleep apnea CPAP dependent nightly who presented to the emergency department on 07/02/21 with a chief complaint of hematuria. Patient is status post right total hip arthroplasty completed on 06/21/21 and states during postoperative period he was having difficulty urinating which resulted in Beltran catheter insertion. Patient states prior to arrival to the emergency department he noticed some bright red blood and clots in catheter tubing and was no longer able to urinate. Patient was instructed by urologist to come to the emergency department. Despite multiple attempts at flushing patient's beltran catheter tubing continued to be obstructed and urologist, Dr. Jaime had to come in and place a 20-German coud catheter for manual irrigation. The patient continued to have hematuria with hemoglobin dropping from 11.4 to 8.9 on 07/05. The patient's hemoglobin subsequently improved to 9.4 on 07/06. He was seen at the bedside and reported no active complaints. Discussed the case with the urologist automation sales manager Dr. Barragan who is in agreement with the patient being discharged home to follow up with him in his office. The patient is eager and ready to be discharged home. Physical Examination General: Non-toxic, in no acute distress, appears stated age, obese HEENT: NC/AT, anicteric sclerae, moist conjunctiva, no lid-lag, PERRLA Cardiovascular: S1/S2 wnl, no murmurs, rubs, or gallops Lungs: Clear to auscultation, normal respiratory effort, no accessory muscle use Abdominal: Soft, non-tender, non-distended, no guarding, rebound, or rigidity, Beltran catheter in place with bag with yellow urine without clots Skin: Warm, dry Extremities: No edema or contractures Psychiatric: Alert and oriented to person, place and time, appropriate affect Neuro: CN II-XII grossly intact, Strength 5/5 in all 4 extremities, Speech intact, Sensation to light touch grossly intact throughout Discharge diagnosis: BPH with urinary retention status post Beltran catheter insertion, hematuria, hyperlipidemia, obstructive sleep apnea, tachycardia A total of 40 minutes of time were spent preparing this complex discharge summary. Patient Condition at Discharge: Stable Plan - Discharge Summary Discharge Rx Participant: Yes New Discharge Prescriptions: Continue methocarbamoL [Robaxin] 750 mg PO Q6H PRN PRN Reason: Pain Propranolol HCl [Inderal LA] 80 mg PO DAILY@1700 Meclizine HCl 25 mg PO TID PRN PRN Reason: Vertigo Glucosamine/Chondr Trujillo A Sod [Osteo Bi-Flex Caplet] 1 tab PO DAILY Pravastatin Sodium [Pravachol] 20 mg PO HS Tamsulosin HCl [Flomax] 0.4 mg PO DAILY HYDROcodone/APAP 7.5-325MG [Riesel 7.5-325] 1 - 2 tab PO Q6H PRN #32 tab PRN Reason: Pain Zinc 50 mg PO DAILY Ascorbic Acid [Vitamin C] 500 mg PO DAILY Cholecalciferol (Vitamin D3) [Vitamin D3 (125 MCG = 5,000 IU)] 125 mcg PO DAILY Discontinued Meloxicam 15 mg PO DAILY Ondansetron Odt [Zofran Odt] 1 tab PO Q8HR PRN #10 tab PRN Reason: Nausea hydroCHLOROthiazide 25 mg PO DAILY Aspirin 325 mg PO BID #60 tab Sennosides [Senokot] 2 tab PO DAILY PRN #60 tablet PRN Reason: Constipation Discharge Medication List Meclizine HCl 25 mg PO TID PRN 11/28/17 [History] Propranolol HCl [Inderal LA] 80 mg PO DAILY@1700 11/28/17 [History] methocarbamoL [Robaxin] 750 mg PO Q6H PRN 11/28/17 [History] Ascorbic Acid [Vitamin C] 500 mg PO DAILY 06/17/21 [History] Glucosamine/Chondr Truj[place] A Sod [Osteo Bi-Flex Caplet] 1 tab PO DAILY 06/17/21 [History] Pravastatin Sodium [Pravachol] 20 mg PO HS 06/17/21 [History] Tamsulosin HCl [Flomax] 0.4 mg PO DAILY 06/17/21 [History] Zinc 50 mg PO DAILY 06/17/21 [History] HYDROcodone/APAP 7.5-325MG [Riesel 7.5-325] 1 - 2 tab PO Q6H PRN #32 tab 06/21/21 [Rx] Cholecalciferol (Vitamin D3) [Vitamin D3 (125 MCG = 5,000 IU)] 125 mcg PO DAILY 07/02/21 [History] Follow up Appointment(s)/Referral(s): Madina Crane NPC [Primary Care Provider] - 1-2 days Rei Pickens MD [STAFF PHYSICIAN] - 07/11/21 4:00 pm [facility], [NON-STAFF] - 1 Week Emiliano Saba DO [Doctor of Osteopathic Medicine] - 07/21/21 2:30 pm Patient Instructions/Handouts: *Surgery [facility] - Beltran Catheter Instructions, Urinary Retention in Men (ED) Activity/Diet/Wound Care/Special Instructions: Please return to the Emergency Department if symptoms worsen or any other concerns. coude catheter placed 07/04/[address] Barragan (irrigate as needed) activity as tolerated drink plenty of fluids/regular diet outpatient Physical Therapy script given to patient. Discharge Disposition: HOME SELF-CARE
[2021-07-06 15:53] VITALS: BP 119/75; PULSE 95; RESP 18; TEMP 98.4
== END 2021-07-06 16:50 | disposition home or self-care (01) | DRG 664 ==
LOC: EC 12:41 → 6NMEDSUR 18:48 → OBSVTOIN 07-04 11:55
PROVIDERS: ADMIT Student in an Organized Health Care Education/Training Program; ATTEND Student in an Organized Health Care Education/Training Program
PROC: 0TCB8ZZ Extirpation of Matter from Bladder, Via Natural or Artificial Opening Endoscopic (ICD-10-PCS; principal; 2021-07-03)
PROC: 0TW Urinary System, Revision (ICD-10-PCS; 2021-07-03)
DX: R31.0 Gross hematuria (principal); G47.33 Obstructive sleep apnea (adult) (pediatric); N40.1 Benign prostatic hyperplasia with lower urinary tract symptoms; T83.021A Displacement of indwelling urethral catheter, initial encounter; R00.0 Tachycardia, unspecified; E78.5 Hyperlipidemia, unspecified; Z20.822 Contact with and (suspected) exposure to COVID-19; R33.8 Other retention of urine; Z96.641 Presence of right artificial hip joint; D72.829 Elevated white blood cell count, unspecified; K59.00 Constipation, unspecified; M19.90 Unspecified osteoarthritis, unspecified site; Z79.1 Long term (current) use of non-steroidal anti-inflammatories (NSAID); Z79.82 Long term (current) use of aspirin; Z79.899 Other long term (current) drug therapy; Z87.19 Personal history of other diseases of the digestive system; Z87.891 Personal history of nicotine dependence; Z88.0 Allergy status to penicillin; Z88.2 Allergy status to sulfonamides; Z86.14 Personal history of Methicillin resistant Staphylococcus aureus infection
CPT/HCPCS: 51702; 80048; 81001; 83735; 85025; 85027; 85610; 85730; 87077; 87086; 87186; 87635; 99284

== ENCOUNTER → 2021-08-31 | Outpatient (CLI) | payer OTHER | END | disposition home or self-care (01) | LOC: LABPAT 09:19 | PROVIDERS: ATTEND Urology | DX: Z01.818 Encounter for other preprocedural examination (principal) ==

== ENCOUNTER → 2021-09-08 | Outpatient (CLI) | payer OTHER ==
--- NOTE | 2021-09-08 12:04 | CT ---
EXAMINATION TYPE: CT pelvis wo con DATE OF EXAM: 09/08/2021 COMPARISON: None HISTORY: BPH with obstruction CT DLP: 1073.7 mGycm Automated exposure control for dose reduction was used. FINDINGS: There is marked lobulation and increased size of the prostate measuring at least 8.2 cm. Unfortunatel y, significant artifact in the right hip prostheses process. A nodular appearing density along the po sterior margin of the bladder may represent partial volume averaging enlarged prostate although a raj dder mass cannot be excluded. Degenerative change lower lumbar spine at levels severe degenerative disc disease, facet arthropathy and foraminal encroachment. Right hip prostheses noted with significant artifact. Arthropathy of the left hip. Atherosclerotic change aorta with no evidence of aneurysm. Incidental note made of a large gallstone. No pathologic adenopathy. Bowel gas pattern nonspecific with changes of diverticulosis. Small fat-co ntaining periumbilical hernia. IMPRESSION: 1. Assessment of the pelvis is limited due to metal artifact from the right hip prostheses. The bladd er appears to be markedly enlarged and there is marked distention of the bladder correlate for a outl et obstruction. As noted above on the axial images there is a suggestion of a posterior wall bladder mass. Although, bladder mass cannot be excluded, This may be related to partial volume averaging due to the marked e nlargement of prostate measuring greater than 8 cm. Correlation clinically is recommended. 2. Cholelithiasis.
== END | disposition home or self-care (01) ==
LOC: RADCTMAIN 11:20
PROVIDERS: ATTEND Urology
DX: N40.1 Benign prostatic hyperplasia with lower urinary tract symptoms (principal); K80.20 Calculus of gallbladder without cholecystitis without obstruction
CPT/HCPCS: 72192

== ENCOUNTER 2021-09-09 09:01 | Inpatient (IN) | payer OTHER ==
[2021-08-31 10:28] LABS: Basophils # (A) 0.1 k/uL (0-0.2); Basophils % (A) 1 %; Eosinophils # (A) 0.4 k/uL (0-0.7); Eosinophils % (A) 5 %; HCT 42.4 % (39.0-53.0); HGB 13.4 gm/dL (13.0-17.5); Hypochromasia Slight; Lymphocytes # (A) 1.2 k/uL (1.0-4.8); Lymphocytes % (A) 16 %; MCH 28.2 pg (25.0-35.0); MCHC 31.6 g/dL (31.0-37.0); MCV 89.4 fL (80.0-100.0); Mean Platelet Volume 7.5; Monocytes # (A) 0.7 k/uL (0-1.0); Monocytes % (A) 9 %; Neutrophils # (A) 4.9 k/uL (1.3-7.7); Neutrophils % (A) 67 %; Platelet Count 246 k/uL (150-450); RBC 4.74 m/uL (4.30-5.90); RDW 14.1 % (11.5-15.5); WBC 7.4 k/uL (3.8-10.6)
[2021-08-31 10:49] LABS: African American GFR (CKD) >90 (>60 ml/min/1.73 sqM); Anion Gap 6 mmol/L; Blood Urea Nitrogen 12 mg/dL (9-20); Carbon Dioxide 31 mmol/L (22-30); Chloride 99 mmol/L (98-107); Glucose 106 mg/dL (74-99); Non-African American GFR(CKD) >90 (>60 ml/min/1.73 sqM); Potassium 3.9 mmol/L (3.5-5.1); Sodium 136 mmol/L (137-145)
[2021-08-31 10:58] LABS: Appearance,Urine Clear (Clear); Bilirubin,Urine Negative (Negative); Blood,Urine Negative (Negative); Color,Urine Light Yellow; Glucose,Urine (UA) Negative (Negative); Ketones,Urine Negative (Negative); Leukocyte Esterase,Urine Negative (Negative); Nitrite,Urine Negative (Negative); Protein,Urine Negative (Negative); Specific Gravity,Urine 1.008 (1.001-1.035); Urobilinogen,Urine <2.0 mg/dL (<2.0)
[2021-09-05 10:54] VITALS: BMI 39.0
--- NOTE | 2021-09-08 21:09 | P.HPIHPCON ---
History of Present Illness H&P Date: 09/01/21 This a 61 yo male with hx of BPH and recurrent urinary retention, he is symptomatic despite medical therapy TRUS showed 165 gram prostate. Discussed given the size of his prostate the recommended approach is either a HoLEP or Robotic simple prostatecomy. discussed the risk and benefit of each procedure in detail. He agreed to proceed with a robotic simple prostatectomy. Discussed with him the risk of surgery which includes but not limited to bleeding, infection, injury to nearby organs which includes but not limited to bowel, ureter, rectum, or blood vessels.. Discussed also with him risk from anesthesia which includes but not limited to heart attack, stroke, blood clots. Discussed with him also the risk of persistent symptoms even with simple prostatectomy. Discussed the risk of erectile dysfunction and urinary incontinence. He understood all the risk and agreed to proceed Consent for Procedure: I have explained the operation/procedure to the patient, including the risks, benefits, side effects, alternative therapies (including not receiving the pr oposed treatment or service), the likelihood of the patient achieving his/her goals, and potential recuperation problems for the procedure/sedation/analgesia, as well as any blood products, if indicated. I also explained to the patient the risks, benefits and side effects of the alternatives, as well as the risks related to not receiving the proposed procedure, care, treatment, or services. Past Medical History Past Medical History: Osteoarthritis (OA), Skin Disorder, Sleep Apnea/CPAP/BIPAP Additional Past Medical History / Comment(s): High heart rate, uses CPAP, hx colon polyps, Eczema on legs, hx Covid Sep 2020. History of Any Multi-Drug Resistant Organisms: MRSA Date of last positivie culture/infection: 12/07/17 MDRO Source:: KNEE Past Surgical History: Back Surgery, Joint Replacement Additional Past Surgical History / Comment(s): Colonoscopy, left thumb ligament repair, right hip replacement. Past Anesthesia/Blood Transfusion Reactions: No Reported Reaction, Motion Sickness Additional Past Anesthesia/Blood Transfusion Reaction / Comment(s): Vertigo, no hx blood transfusion. Past Psychological History: No Psychological Hx Reported Smoking Status: Former smoker Past Alcohol Use History: None Reported Additional Past Alcohol Use History / Comment(s): Quit smoking 2004, smoked approx 25 yrs, 1 1/2ppd. Past Drug Use History: None Reported - Past Family History Mother Family Medical History: Cancer Additional Family Medical History / Comment(s): Lymphnode Cancer. Father Family Medical History: Cancer Additional Family Medical History / Comment(s): Prostate cancer. Medications and Allergies Home Medications Medication Instructions Recorded Confirmed Type Meclizine HCl 25 mg PO TID PRN 11/28/17 09/05/21 History Propranolol HCl [Inderal LA] 80 mg PO DAILY@1700 11/28/17 09/05/21 History methocarbamoL [Robaxin] 750 mg PO Q6H PRN 11/28/17 09/05/21 History Ascorbic Acid [Vitamin C] 500 mg PO DAILY 06/17/21 09/05/21 History Glucosamine/Chondr [place] A Sod [Osteo 1 tab PO DAILY 06/17/21 09/05/21 History Bi-Flex Caplet] Pravastatin Sodium [Pravachol] 20 mg PO HS 06/17/21 09/05/21 History Tamsulosin HCl [Flomax] 0.4 mg PO BID 06/17/21 09/05/21 History Zinc 50 mg PO DAILY 06/17/21 09/05/21 History HYDROcodone/APAP 7.5-325MG [[place] 1 - 2 tab PO Q6H PRN #32 tab 06/21/21 09/05/21 Rx 7.5-325] Cholecalciferol (Vitamin D3) 125 mcg PO DAILY 07/02/21 09/05/21 History [Vitamin D3 (125 MCG = 5,000 IU)] Meloxicam 15 mg PO DAILY 09/05/21 09/05/21 History modafiniL [Provigil] 200 mg PO DAILY 09/05/21 09/05/21 History Allergies Allergy/AdvReac Type Severity Reaction Status Date / Time Penicillins Allergy Dyspnea Verified 09/05/21 10:40 sulfamethoxazole Allergy Rash/Hives Verified 09/05/21 10:40 [From Bactrim] trimethoprim [From Bactrim] Allergy Rash/Hives Verified 09/05/21 10:40 Surgical - Exam - General no distress, no pain - ENT normal nares, normal mucosa - Respiratory normal expansion, normal respiratory effort - Psychiatric oriented to time, oriented to person, oriented to place Results - Labs 08/31/21 09:41 08/31/21 09:41 Assessment and Plan Assessment: 61 yo male with hx of BPH -OR for robotic simple prostatectomy
[~2021-09-09 09:01] MED LIST changes: -ACETAMINOPHEN TAB 500 MG TAB PO PRN; +CLINDAMYCIN 600 MG in DEXTROSE 5% IN WATER 50 ML IVPB PRN; -CLINDAMYCIN 900 MG in DEXTROSE 5% IN WATER 50 ML IVPB PRN; -GABAPENTIN 300 MG CAP PO PRN; +GENTAMICIN 120 MG in SODIUM CHLORIDE 0.9% 100 ML IVPB PRN; +HEPARIN SODIUM,PORCINE/PF 5,000 UNIT/0.5 ML SYRINGE SQ PRN; +HYDROmorphone 0.5 MG/0.5 ML SYRINGE IVP PRN; -LACTATED RINGERS 1,000 ML IV SCH; -MELOXICAM 7.5 MG TAB PO PRN; -SCOPOLAMINE 1.5MG/72HR PATCH TRANSDERM ONE; -TRANEXAMIC ACID 1,000 MG in SODIUM CHLORIDE 0.9% 100 ML IVPB PRN
[2021-09-09] MEDS: LACTATED RINGERS 1,000 ML IV SCH (09:45)
[2021-09-09] MEDS ORDERED: fentaNYL (PF) 50 MCG/ML 2 ML AMP IV ONE (10:33)
[2021-09-09] MEDS ORDERED: MIDAZOLAM 2 MG/2 ML VIAL IV ONE (10:33)
[2021-09-09] MEDS ORDERED: methocarbamoL 750 MG TAB PO PRN (10:42)
[2021-09-09] MEDS ORDERED: MECLIZINE 25 MG TAB PO PRN (10:42)
--- NOTE | 2021-09-09 11:00 | P.ANPRN ---
Procedure Note - Anesthesia - Nerve Block Performed Bilateral Erector Spinae Single Time Out Performed: Yes Date of Procedure: 09/09/21 Procedure Start Time: :32 Procedure Stop Time: :44 Location of Patient: PreOp Indication: Requested by Surgeon Specifically requested for management of pain by DrDeneen: Rei Pickens Sedation Type: Sedate with meaningful contact maintained Preparation: Sterile Prep Position: Prone Needle Types: Pajunk Needle Gauge: 18 Ultrasound used to visualize needle placement: Yes Ultrasound used to observe medication spread: Yes Injectate: 0.5% Ropivacaine (see comment for volume) (15 ml + 15 ml 0.9 % NS +4 mg dexamethasone per side) Blood Aspirated: No Pain Paresthesia on Injection Noted: No Resistance on Injection: Normal Image Stored and Saved: Yes Events: Uneventful and Well Tolerated
[2021-09-09] MEDS ORDERED: ROCURONIUM 10 MG/ML (5 ML VIAL) IV ONE (11:21)
[2021-09-09] MEDS ORDERED: LIDOCAINE 1% INJ 10MG/ML (20 ML MDV) ONE (11:21)
[2021-09-09] MEDS ORDERED: fentaNYL (PF) 50 MCG/ML 2 ML AMP ONE (11:21)
[2021-09-09] MEDS ORDERED: SUCCINYLCHOLINE CHLORIDE VIAL 200 MG/10 ML VIAL IV ONE (11:21)
[2021-09-09] MEDS ORDERED: ROPIVACAINE 5 MG/ML 30 ML VIAL ONE (11:21)
[2021-09-09] MEDS ORDERED: PROPOFOL 10 MG/ML 20 ML VIAL IV ONE (11:21)
[2021-09-09] MEDS ORDERED: BUPIVACAIN-EPI 0.25%-1:200,000 30 ML VIAL SQ ONE (12:16)
[2021-09-09] MEDS ORDERED: LACTATED RINGERS 1,000 ML IV ONE ×2 (12:17→14:47)
--- NOTE | 2021-09-09 14:43 | P.OP ---
Date of Procedure: 09/09/21 Preoperative Diagnosis: BPH with obstruction Postoperative Diagnosis: same Procedure(s) Performed: Robotic simple prostatectomy Anesthesia: PEPE Surgeon: Rei Pickens Business Education Instructor #1: aMry Morales Estimated Blood Loss (ml): 300 Pathology: other (Prostate adenoma) Condition: stable Disposition: PACU Indications for Procedure: This a 61 yo male with hx of BPH and recurrent urinary retention, he is symptomatic despite medical therapy TRUS showed 165 gram prostate. Discussed given the size of his prostate the recommended approach is either a HoLEP or Robotic simple prostatecomy. discussed the risk and benefit of each procedure in detail. He agreed to proceed with a robotic simple prostatectomy. Discussed with him the risk of surgery which includes but not limited to bleeding, infection, injury to nearby organs which includes but not limited to bowel, ureter, rectum, or blood vessels.. Discussed also with him risk from anesthesia which includes but not limited to heart attack, stroke, blood clots. Discussed with him also the risk of persistent symptoms even with simple prostatectomy. Discussed the risk of erectile dysfunction and urinary incontinence. He understood all the risk and agreed to proceed Description of Procedure: After preoperative antibiotics were started, the patient was taken to the operating room. Anesthesia was induced and the patient was placed in a supine position with adequate padding of the pressure points, shoulders, back, legs and arms. He was then prepped and draped in the standard fashion. A critical pause was performed using two patient identifiers. A 16F beltran catheter was placed to gravity drainage. A pneumoperitoneum was obtained using a Veress needle, after pneumoperitoneum was obtained a 8 mm camera port was placed. Under direct vision a 8mm robotic ports was placed lateral to each rectus slightly below the camera port. The left iliac fossa 8mm port was placed. The right assistant director of financial aid right iliac fossa 12mm port and right paramedian 5mm portwere placed. After the patient was placed in the trendelenberg position, the robot was then docked to the 8mm robotic ports and then each robotic arm and tower was checked in relation to the patient's legs and hands to avoid inadvertent compression. The peritoneal cavity was inspected. Adhesions were taken down along the left lower quadrant An inverted U-shaped incision began laterally to the left medial umbilical ligament and extended high across the midline to the right umbilical ligament. The limbs of the "U" extended to the level of the vasa on both sides. We next developed the preperitoneal space and the space of Retzius. Cautery was used to dissected the bladder away from the prostate, the incision was made in close proximity to the prostate, and incision was extended laterally and at this point the plane between the adenoma and the surgical capsule is identified. Of note patient had a significantly enlarged median lobe, and bilateral lateral lobe extra vesicle extension Both ureteral orifices were identified and neither was injured during the dissection . The adenoma was dissected off of the capsule by combination of blunt dissection and minimum cautery. dissection was initially started along the anterior surface and posterior surface of adenoma, and this was carried laterally. The dissection was carried to the apex, at this point the urethral-prostatic junction was visu alized and the prostate was transected at the junction. Prostate adenoma was placed in an endocatch bag . A 9and 9 inch 3-0 V-Lock suture was used to anastomose the urethra and bladder, starting at the 6:00 posterior position. Mucosa was secured in every stitch, to ensure a mucosa to mucosa anastomosis. The stitch was regularly cinched and the anastomosis tightened. . The 20 Fr Beltran catheter was advanced, the bladder filled, and the anastomosis was tested. Anastomsis was watertight at 150 mL. balloon was inflated to 10 mL The robot was undocked. specimen was extracted from the supraumbilical incision. The periumbilical fascia was closed with 1-0-PDS suture in figure of 8 fashion. All ports were closed with a subcuticular 4-0 monocryl and Dermabond. Sponge, instrument, and needle counts were correct at the end of the case x2. The patient tolerated the surgery well and without complication. He awoke without difficulty and was taken to the recovery room in stable condition
[2021-09-09] MEDS ORDERED: PROPRANOLOL LA 80 MG CAP.SA.24H PO SCH (17:00)
[2021-09-09 17:23] VITALS: RESP 18
[2021-09-09] MEDS: HYDROcodone/APAP 7.5-325MG 1 EACH TAB PO PRN ×2 (17:36→23:19)
[2021-09-09] MEDS: HEPARIN SODIUM,PORCINE/PF 5,000 UNIT/0.5 ML SYRINGE SQ SCH ×2 (17:37→23:26)
[2021-09-09] MEDS: KETOROLAC 30 MG/ML 1 ML VIAL IVP SCH ×2 (17:37→23:17)
[2021-09-09] MEDS: D5-0.45% NACL WITH KCL 20MEQ/L 1,000 ML IV SCH ×2 (17:38→23:27)
[2021-09-09] MEDS ORDERED: PRAVASTATIN SODIUM 20 MG TAB PO SCH (21:00)
[2021-09-10] MEDS: LACTATED RINGERS 1,000 ML IV SCH (03:25)
[2021-09-10] MEDS: KETOROLAC 30 MG/ML 1 ML VIAL IVP SCH ×2 (06:01→12:35)
[2021-09-10] MEDS: HEPARIN SODIUM,PORCINE/PF 5,000 UNIT/0.5 ML SYRINGE SQ SCH (08:43)
[2021-09-10] MEDS: D5-0.45% NACL WITH KCL 20MEQ/L 1,000 ML IV SCH (09:44)
--- NOTE | 2021-09-10 12:06 | P.DS ---
Providers Date of admission: 09/09/21 09:01 Attending physician: Rei Pickens MD Primary care physician: [facility] Course: This is a 61-year-old male with history of BPH. He underwent a robotic simple prostatectomy on September 09. Please see op note dated September 09 for surgery detail. He was admitted to the hospital postoperatively. He did well in the postoperative period. He was discharged home on postop day #1, time of discharge he was tolerating a diet, ambulating, pain was well-controlled Plan - Discharge Summary Discharge Rx Participant: No New Discharge Prescriptions: New Nitrofurantoin Monohyd/M-Cryst [Macrobid] 100 mg PO Q12HR #28 cap Ketorolac [Toradol] 10 mg PO Q6HR PRN #15 tab PRN Reason: Pain HYDROcodone/APAP 5-325MG [[place] 5-325] 1 tab PO Q6HR PRN 3 Days #6 tab PRN Reason: Pain No Action methocarbamoL [Robaxin] 750 mg PO Q6H PRN PRN Reason: Pain Propranolol HCl [Inderal LA] 80 mg PO DAILY@1700 Meclizine HCl 25 mg PO TID PRN PRN Reason: Vertigo Glucosamine/Chondr [place] A Sod [Osteo Bi-Flex Caplet] 1 tab PO DAILY Pravastatin Sodium [Pravachol] 20 mg PO HS Tamsulosin HCl [Flomax] 0.4 mg PO BID HYDROcodone/APAP 7.5-325MG [[place] 7.5-325] 1 - 2 tab PO Q6H PRN #32 tab PRN Reason: Pain Zinc 50 mg PO DAILY Ascorbic Acid [Vitamin C] 500 mg PO DAILY Cholecalciferol (Vitamin D3) [Vitamin D3 (125 MCG = 5,000 IU)] 125 mcg PO DAILY Meloxicam 15 mg PO DAILY modafiniL [Provigil] 200 mg PO DAILY Discharge Medication List Meclizine HCl 25 mg PO TID PRN 11/28/17 [History] Propranolol HCl [Inderal LA] 80 mg PO DAILY@1700 11/28/17 [History] methocarbamoL [Robaxin] 750 mg PO Q6H PRN 11/28/17 [History] Ascorbic Acid [Vitamin C] 500 mg PO DAILY 06/17/21 [History] Glucosamine/Chondr [place] A Sod [Osteo Bi-Flex Caplet] 1 tab PO DAILY 06/17/21 [History] Pravastatin Sodium [Pravachol] 20 mg PO HS 06/17/21 [History] Tamsulosin HCl [Flomax] 0.4 mg PO BID 06/17/21 [History] Zinc 50 mg PO DAILY 06/17/21 [History] HYDROcodone/APAP 7.5-325MG [[place] 7.5-325] 1 - 2 tab PO Q6H PRN #32 tab 06/21/21 [Rx] Cholecalciferol (Vitamin D3) [Vitamin D3 (125 MCG = 5,000 IU)] 125 mcg PO DAILY 07/02/21 [History] Meloxicam 15 mg PO DAILY 09/05/21 [History] modafiniL [Provigil] 200 mg PO DAILY 09/05/21 [History] HYDROcodone/APAP 5-325MG [[place] 5-325] 1 tab PO Q6HR PRN 3 Days #6 tab 09/09/21 [Rx] Ketorolac [Toradol] 10 mg PO Q6HR PRN #15 tab 09/09/21 [Rx] Nitrofurantoin Monohyd/M-Cryst [Macrobid] 100 mg PO Q12HR #28 cap 09/09/21 [Rx] Activity/Diet/Wound Care/Special Instructions: No heavy lifting or straining for 4 weeks You may shower but no baths Increase fluid intake It is normal to see blood in the urine You can use the Toradol for pain if ineffective then can use Narco for pain Discharge Disposition: HOME SELF-CARE
[2021-09-10 12:47] VITALS: BP 104/68; PULSE 74; TEMP 97.9
== END 2021-09-10 13:40 | disposition home or self-care (01) | DRG 707 ==
LOC: 2ORMAIN 09:01 → 5NMEDONC 15:16
PROVIDERS: ADMIT Urology; ATTEND Urology
PROC: 0VT04ZZ Resection of Prostate, Percutaneous Endoscopic Approach (ICD-10-PCS; principal; 2021-09-09 10:55)
PROC: 8E0W4CZ Robotic Assisted Procedure of Trunk Region, Percutaneous Endoscopic Approach (ICD-10-PCS; principal; 2021-09-09 10:55)
DX: N40.1 Benign prostatic hyperplasia with lower urinary tract symptoms (principal); N13.8 Other obstructive and reflux uropathy; Z20.822 Contact with and (suspected) exposure to COVID-19; R33.8 Other retention of urine; G47.33 Obstructive sleep apnea (adult) (pediatric); L30.9 Dermatitis, unspecified; M19.90 Unspecified osteoarthritis, unspecified site; Z79.1 Long term (current) use of non-steroidal anti-inflammatories (NSAID); Z79.899 Other long term (current) drug therapy; Z86.16 Personal history of COVID-19; Z87.891 Personal history of nicotine dependence; Z86.010 Personal history of colon polyps; Z86.14 Personal history of Methicillin resistant Staphylococcus aureus infection; Z96.641 Presence of right artificial hip joint; Z87.39 Personal history of other diseases of the musculoskeletal system and connective tissue; Z98.890 Other specified postprocedural states; Z88.0 Allergy status to penicillin; Z88.2 Allergy status to sulfonamides; Z80.7 Family history of other malignant neoplasms of lymphoid, hematopoietic and related tissues; Z80.42 Family history of malignant neoplasm of prostate
CPT/HCPCS: 36415; 64999; 80048; 81003; 85025; 86850; 86900; 86901; 87086; 87635; 88307

== ENCOUNTER 2021-10-08 23:14 | Emergency (ER) | payer OTHER ==
[2021-10-08 23:23] VITALS: BP 138/73; PULSE 88; RESP 20; TEMP 97
--- NOTE | 2021-10-08 23:32 | ED ---
General Adult HPI - General Chief complaint: Recheck/Abnormal Lab/Rx Stated complaint: Incision issues Time Seen by Provider: 10/08/21 23:26 Source: patient Mode of arrival: ambulatory Limitations: no limitations - History of Present Illness Initial comments: 61 year-old male patient presents for evaluation of bleeding from abdominal incision. Patient states that he had prostate removal surgery by Dr. Pickens on 09/07/21. States that he has been healing quite well. States tonight he bent over in the bathroom and felt a pop. He had a trickle of blood coming from an open portion of his midline supraumbilical incision. He denies any abdominal pain. States he has been urinating without difficulty. Denies any use of blood thinners. Denies any constipation or diarrhea. - Related Data Home Medications Medication Instructions Recorded Confirmed Meclizine HCl 25 mg PO TID PRN 11/28/17 09/09/21 Propranolol HCl [Inderal LA] 80 mg PO DAILY@1700 11/28/17 09/09/21 methocarbamoL [Robaxin] 750 mg PO Q6H PRN 11/28/17 09/09/21 Ascorbic Acid [Vitamin C] 500 mg PO DAILY 06/17/21 09/09/21 Glucosamine/Chondr [place] A Sod [Osteo 1 tab PO DAILY 06/17/21 09/09/21 Bi-Flex Caplet] Pravastatin Sodium [Pravachol] 20 mg PO HS 06/17/21 09/09/21 Tamsulosin HCl [Flomax] 0.4 mg PO BID 06/17/21 09/09/21 Zinc 50 mg PO DAILY 06/17/21 09/09/21 Cholecalciferol (Vitamin D3) 125 mcg PO DAILY 07/02/21 09/09/21 [Vitamin D3 (125 MCG = 5,000 IU)] Meloxicam 15 mg PO DAILY 09/05/21 09/09/21 modafiniL [Provigil] 200 mg PO DAILY 09/05/21 09/09/21 Previous Rx's Medication Instructions Recorded HYDROcodone/APAP 7.5-325MG [[place] 1 - 2 tab PO Q6H PRN #32 tab 06/21/21 7.5-325] HYDROcodone/APAP 5-325MG [[place] 1 tab PO Q6HR PRN 3 Days #6 tab 09/09/21 5-325] Ketorolac [Toradol] 10 mg PO Q6HR PRN #15 tab 09/09/21 Nitrofurantoin Monohyd/M-Cryst 100 mg PO Q12HR #28 cap 09/09/21 [Macrobid] Allergies Allergy/AdvReac Type Severity Reaction Status Date / Time Penicillins Allergy Dyspnea Verified 10/08/21 23:23 sulfamethoxazole Allergy Rash/Hives Verified 10/08/21 23:23 [From Bactrim] trimethoprim [From Bactrim] Allergy Rash/Hives Verified 10/08/21 23:23 Review of Systems ROS Statement: Those systems with pertinent positive or pertinent negative responses have been documented in the HPI. ROS Other: All systems not noted in ROS Statement are negative. Past Medical History Past Medical History: Osteoarthritis (OA), Prostate Disorder, Skin Disorder, Sleep Apnea/CPAP/BIPAP Additional Past Medical History / Comment(s): High heart rate, uses CPAP, hx colon polyps, Eczema on legs, hx Covid Sep 2020. History of Any Multi-Drug Resistant Organisms: MRSA Date of last positivie culture/infection: 12/07/17 MDRO Source:: KNEE Past Surgical History: Back Surgery, Joint Replacement, Prostate Surgery Additional Past Surgical History / Comment(s): Colonoscopy, left thumb ligament repair, right hip replacement. Past Anesthesia/Blood Transfusion Reactions: No Reported Reaction, Motion Sickness Additional Past Anesthesia/Blood Transfusion Reaction / Comment(s): Vertigo, no hx blood transfusion. Past Psychological History: No Psychological Hx Reported Smoking Status: Former smoker Past Alcohol Use History: None Reported Past Drug Use History: None Reported - Past Family History Mother Family Medical History: Cancer Additional Family Medical History / Comment(s): Lymphnode Cancer. Father Family Medical History: Cancer Additional Family Medical History / Comment(s): Prostate cancer. General Exam Limitations: no limitations General appearance: alert, in no apparent distress, other (This is a well- developed, well-nourished adult male in no acute distress.) Respiratory exam: Present: normal lung sounds bilaterally. Absent: respiratory distress, wheezes, rales, rhonchi, stridor Cardiovascular Exam: Present: regular rate, normal rhythm, normal heart sounds. Absent: systolic murmur, diastolic murmur, rubs, gallop, clicks GI/Abdominal exam: Present: soft, normal bowel sounds, other (There is midline suprapubic abdominal incision with distal superficial wound dehiscence. No bleeding, no drainage. All other incisions appear well healing and intact.). Absent: distended, tenderness, guarding, rebound, rigid Course Vital Signs 10/08/21 23:16 Temperature 97.0 F L Pulse Rate 88 Respiratory 20 Rate Blood Pressure 138/73 O2 Sat by Pulse 96 Oximetry Medical Decision Making - Medical Decision Making 61-year-old male patient presents for evaluation of bleeding from his lower abdominal incision site. Had prostate removal with Dr. Pickens on 09/07/2021. Physical examination did reveal a superficial wound dehisced into the distal portion of the supraumbilical midline incision. No active bleeding or drainage at this time. Tissue appears healthy with no evidence for infection. We did discuss healing by secondary intention at this point. He is instructed to call Dr. Pickens on Sunday for further evaluations instructions. We discussed wound care. Patient and verbalized understanding and agree with this plan. My attending is Dr. Albright. Disposition Clinical Impression: External incisional dehiscence Disposition: HOME SELF-CARE Condition: Good Instructions (If sedation given, give patient instructions): Wound Dehiscence (ED) Additional Instructions: Apply moist dressing, then ABD pad. Clean area and change dressing twice daily. Contact Dr. Pickens on Sunday for an appointment. Return to the emergency department immediately for any new, worsening, or concerning symptoms. Is patient prescribed a controlled substance at d/c from ED?: No Referrals: Sadi Valdivia MD [Primary Care Provider] - 1-2 days Time of Disposition: 23:32
== END 2021-10-08 23:59 | disposition home or self-care (01) ==
LOC: EC 23:14
DX: T81.31XA Disruption of external operation (surgical) wound, not elsewhere classified, initial encounter (principal); M19.90 Unspecified osteoarthritis, unspecified site; Z88.0 Allergy status to penicillin; Z88.1 Allergy status to other antibiotic agents; Z88.2 Allergy status to sulfonamides; Z96.641 Presence of right artificial hip joint; Z87.891 Personal history of nicotine dependence; Y83.9 Surgical procedure, unspecified as the cause of abnormal reaction of the patient, or of later complication, without mention of misadventure at the time of the procedure
CPT/HCPCS: 99283

== ENCOUNTER → 2022-09-25 | Outpatient (CLI) | payer OTHER ==
--- NOTE | 2022-09-26 12:43 | CT ---
EXAMINATION TYPE: CT chest wo con CT DLP: 643.7 mGycm, Automated exposure control for dose reduction was used. DATE OF EXAM: 09/25/2022 5:09 PM COMPARISON: None CLINICAL INDICATION:Male, 62 years old with history of R94.2 Abn pulmonary function test, Abnormal pu lmonary function test. TECHNIQUE: Multiple axial images were obtained through the chest. Sagittal and coronal reformats were created for review. Contrast used: none Oral contrast used: none. FINDINGS: LUNGS/ PLEURA: No evidence of focal consolidation, pneumothorax or pleural effusion. No significant i nterstitial lung disease findings. No honeycombing no evidence for ground glass opacity. AIRWAY: Patent and unremarkable. HEART: Size within normal limits. Severe coronary artery calcifications. MEDIASTINUM: No gross evidence of adenopathy. VASCULATURE: No aortic aneurysm. Mild atherosclerosis of the arterial vasculature. MUSCULOSKELETAL: No acute osseous abnormalities, multilevel disc degeneration changes throughout the spine. SOFT TISSUES/LYMPH NODES: Bilateral gynecomastia changes. LOWER NECK: Enlarged right thyroid gland measuring up to 6.6 x 3.9 cm. UPPER ABDOMEN: Calcified gallstone in the gallbladder lumen. Left adrenal gland 3.5 x 3.4 similar nod ule and measures 39 Hounsfield units. IMPRESSION: 1. No acute thoracic process to explain the patient's symptomology. 2. Indeterminate left adrenal nodule. Consider dedicated adrenal mass MRI or CT. 3. Multinodular thyroid gland goiter. 4. Severe coronary artery atherosclerosis.
== END | disposition home or self-care (01) ==
LOC: RADCTMAIN 16:49
PROVIDERS: ATTEND Internal Medicine Pulmonary Disease
DX: E04.2 Nontoxic multinodular goiter (principal); I25.10 Atherosclerotic heart disease of native coronary artery without angina pectoris; E66.9 Obesity, unspecified; R94.2 Abnormal results of pulmonary function studies; G47.33 Obstructive sleep apnea (adult) (pediatric)
CPT/HCPCS: 71250